=== PATIENT | female | born 1945 ===

== ENCOUNTER 2017-09-08 14:43 | Inpatient (IN) | payer MEDICARE, OTHER ==
--- NOTE | 2017-09-08 15:13 | ED PDOC ---
Arrival/HPI - General Time Seen by Provider: 09/08/17 15:04 Historian: Patient - History of Present Illness Narrative History of Present Illness (Text): 09/08/17 15:13 Patient is a 72 year old female, with past medical history of Alzheimer's, hypothyroidism, hypertension, hyperlipidemia, colon cancer and colostomy, presents to the Emergency department accompanied by son for evaluation of increased tremors prior to arrival. As per son,patient "normally has some shaking" but at 2 pm had sudden onset of "shaking severely" where she "couldn't walk" and "had to hold onto something to keep from falling". Son states the symptoms initially began 6 months ago and is scheduled to follow-up with neurologist Dr. Guerrero. However, symptoms worsened today as patient was unable to ambulate to the bathroom due to increased tremors. Patient denies headache, denies weakness. Denies chest pain or shortness of breath. No loss of consciousness. No incontinence of urine or stool. No trauma reported or noted. PMD: Dr. Zhou Neurologist: Dr. Guerrero 09/08/17 22:25 Time/Duration: Prior to Arrival Symptom Onset: Gradual Activities at Onset: Light Context: Home Past Medical History - Provider Review Nursing Documentation Reviewed: Yes - Tetanus Immunization Tetanus Immunization: Unknown - Cardiac Hx Pacemaker: No - Neurological Hx Paralysis: No - HEENT Hx HEENT Disorder: Yes (Use of glasses) - Endocrine/Metabolic Hx Hypothyroidism: Yes - Hematological/Oncological Hx Blood Transfusions: Yes (06/2013) Hx Blood Transfusion Reaction: No - Musculoskeletal/Rheumatological Hx Musculoskeletal Disorders: Yes (L HIP FX. 07/11) - Gastrointestinal Hx Colostomy: Yes - Psychiatric Hx Emotional Abuse: No Hx Physical Abuse: No Hx Substance Use: No - Surgical History Hx Hysterectomy: Yes - Anesthesia Hx Anesthesia Reactions: Yes (CONFUSION) Hx Malignant Hyperthermia: No - Suicidal Assessment Feels Threatened In Home Enviroment: No Family/Social History - Physician Review Nursing Documentation Reviewed: Yes Family/Social History: No Known Family HX Smoking Status: Current Some Days Smoker Hx Alcohol Use: No Hx Substance Use: No Hx Substance Use Treatment: No Allergies/Home Meds Allergies/Adverse Reactions: Allergies No Known Allergies Allergy (Verified 09/08/17 14:57) Home Medications: Home Meds Medication Instructions Recorded Confirmed Atorvastatin [Lipitor] 20 mg PO DAILY 07/01/15 09/08/17 Cyanocobalamin [Vitamin B12 1000 1,000 mcg IM Q14D 07/01/15 09/08/17 mcg/ml Inj] Donepezil HCl [Aricept] 10 mg PO QPM 07/01/15 09/08/17 Ergocalciferol (Vitamin D2) 50,000 iu PO WED 07/01/15 07/03/15 [Vitamin D] Levothyroxine [Synthroid] 88 mcg PO QAM 07/01/15 07/03/15 Losartan Potassium 50 mg PO DAILY 07/01/15 09/08/17 Meclizine [Antivert] 25 mg PO TID PRN 07/01/15 09/08/17 Solifenacin Succinate [Vesicare] 5 mg PO DAILY 07/01/15 09/08/17 Diclofenac Sodium [Diclo Gel] 1 each TP 09/08/17 Review of Systems - Review of Systems Constitutional: Fatigue. absent: Fevers Eyes: absent: Vision Changes ENT: absent: Hearing Changes Respiratory: absent: SOB, Cough Cardiovascular: absent: Chest Pain, Palpitations, Edema Gastrointestinal: absent: Abdominal Pain Genitourinary Female: absent: Dysuria, Frequency Musculoskeletal: absent: Back Pain Skin: absent: Rash Neurological: Gait Changes, Disequilibrium, Other (tremors). absent: Headache, Focal Weakness Endocrine: absent: Polyuria Hemo/Lymphatic: absent: Easy Bleeding Psychiatric: absent: Depression Physical Exam - Physical Exam Narrative Physical Exam (Text): 09/08/17 15:13 Head: Atraumatic. Normocephalic. Eyes: PERRL. EOMI. Conjunctivae are not pale. ENT: Mucous membranes are moist and intact. Oropharynx is clear and symmetric. No facial droop. No tongue deviation. Neck: Supple. Full ROM. No JVD. No lymphadenopathy. Cardiovascular: Regular rate. Regular rhythm. No murmurs, rubs, or gallops. Distal pulses are 2+ and symmetric. Pulmonary/Chest: No evidence of respiratory distress. Clear to auscultation bilaterally. No wheezing, rales or rhonchi. Abdominal: Soft and non-distended. There is no tenderness. No rebound, guarding, or rigidity. No organomegaly. Good bowel sounds. Colostomy. Back: No CVA tenderness. Extremities: No edema. No cyanosis. No clubbing. Full range of motion in all extremities. No calf tenderness. Skin: Skin is warm and dry. No petechiae. No purpura. Neurological: Alert, awake. Answers simple questions appropriatedly and follows commands. No pronator drift. There is no focal weakness. There is tremor, fine, noted in upper extremities with movement. Psychiatric: Good eye contact. Vital Signs Reviewed: Yes Vital Signs Temp Pulse Resp BP Pulse Ox 09/08/17 19:04 71 19 159/86 H 98 09/08/17 15:02 98.4 F 74 17 170/93 H 98 Temperature: Afebrile Blood Pressure: Hypertensive Pulse: Regular Respiratory Rate: Normal Appearance: Positive for: Well-Appearing, Non-Toxic, Comfortable Pain Distress: Mild Medical Decision Making ED Course and Treatment: 09/08/17 15:24 Impression: 72 year old female presents to the Emergency department for evaluation of tremors, episodes of almost following and increase in severity acutely as described by son who is at bedside and witnessed.. Plan: -- CT of Head -- Labs -- Reassess and disposition Prior Visits: Notes and results from previous visits were reviewed. Progress Notes: Patient noted to have tremor with exertion on exam, but no slurred speech, no focal weakness otherwise noted. She is afebrile. No loc. No seizure activity noted. 09/08/17 16:59 CT of head reviewed by radiologist, shows: Severe chronic microvascular changes are seen in the periventricular white matter. There is moderate atrophy. 09/08/17 18:00 Chest X-ray reviewed by radiologist, shows no active disease. 09/08/17 22:30 Patient's son states that she has not formally been diagnosed with Parkinson's but reports concern of acute episode of incrased shakiness. Currently with observation in ED she is afebrile, conversive, and comfortable. Son states PMD is Dr. Aimee Zhou. Will admit to hospitalist service, who covers. Case accepted by Dr. Christina Hensley. Son updated with treatment plan. - Lab Interpretations Lab Results: 09/08/17 17:00 09/08/17 17:00 Lab Results 09/08/17 17:05: pO2 45, VBG pH 7.36, VBG pCO2 49.0, VBG HCO3 27.7, VBG Total CO2 29.2 H, VBG O2 Sat (Calc) 84.3 H, VBG Base Excess 1.5, VBG Potassium 4.4, Glucose 113 H, Lactate 1.3, FiO2 21.0, Sodium 138.0, Chloride 105.0, Venous Blood Potassium 4.4 09/08/17 17:00: Urine Color Straw, Urine Appearance Clear, Urine pH 7.0, Ur Specific [place] <= 1.005, Urine Protein Negative, Urine Glucose (UA) Negative, Urine Ketones Negative, Urine Blood Negative, Urine Nitrate Negative, Urine Bilirubin Negative, Urine Urobilinogen 0.2, Ur Leukocyte Esterase Moderate H, Urine RBC Negative, Urine WBC 1 - 3, Ur Epithelial Cells 0 - 2, Urine Bacteria Neg 09/08/17 17:00: PT 11.5, INR 1.01, APTT 30.1 09/08/17 17:00: Sodium 142, Potassium 4.3, Chloride 103, Carbon Dioxide 27, Anion Gap 16, BUN 9, Creatinine 0.8, Est GFR ( Amer) > 60, Est GFR (Non- Af Amer) > 60, Random Glucose 110, Calcium 10.0, Total Bilirubin 0.7, AST 27, ALT 34, Alkaline Phosphatase 77, Lactate Dehydrogenase 511, Total Creatine Kinase 60, Troponin I < 0.01, Total Protein 8.3, Albumin 4.7, Globulin 3.6, Albumin/Globulin Ratio 1.3 09/08/17 17:00: WBC 6.3, RBC 4.70, Hgb 14.4, Hct 41.2, MCV 87.7, MCH 30.6, MCHC 35.0, RDW 15.1 H, Plt Count 217, MPV 11.8 H, Gran % 79.8 H, Lymph % (Auto) 13.0 L, [place] % (Auto) 5.8, Eos % (Auto) 0.9 L, Baso % (Auto) 0.5, Gran # 5.05, Lymph # (Auto) 0.8 L, [place] # (Auto) 0.4, Eos # (Auto) 0.1, Baso # (Auto) 0.03 - RAD Interpretation Radiology Orders: 09/08/17 15:22 HEAD W/O CONTRAST [CT] Stat 09/08/17 15:32 CHEST PORTABLE [RAD] Stat Vehicle Inspector: Radiologist - EKG Interpretation EKG Interpretation (Text): EKG at 1707 normal sinus rhythm rate of [address] elevations Interpreted by ED Physician: Yes Type: 12 lead EKG - Medication Orders Current Medication Orders: Acetaminophen (Tylenol 325mg Tab) 650 mg PO Q6H PRN PRN Reason: Pain, moderate (4-7) Atorvastatin Calcium (Lipitor) 20 mg PO DAILY SPENCER Donepezil HCl (Aricept) 10 mg PO QPM SPENCER Enoxaparin Sodium (Lovenox) 40 mg SC DAILY SPENCER PRN Reason: Protocol Ergocalciferol (Drisdol 50,000 Intl Units Cap) cap PO WED SPENCER Levothyroxine Sodium (Synthroid) 88 mcg PO QAM SPENCER Losartan Potassium (Cozaar) 50 mg PO DAILY SPENCER Meclizine HCl (Antivert) 25 mg PO TID PRN PRN Reason: Dizziness Non-Formulary Medication (Solifenacin Succinate [Vesicare]) 5 mg PO DAILY SPENCER Pantoprazole Sodium (Protonix Ec Tab) 40 mg PO 0600 SPENCER Discontinued Medications Aspirin (Aspirin Chewable) 81 mg PO STAT STA Stop: 09/08/17 20:00 Last Admin: 09/08/17 20:54 Dose: 81 mg - Aurelianoibe Statement The provider has reviewed the documentation as recorded by the Dmitry Badillo. All medical record entries made by the Dmitry were at my direction and personally dictated by me. I have reviewed the chart and agree that the record accurately reflects my personal performance of the history, physical exam, medical decision making, and the department course for this patient. I have also personally directed, reviewed, and agree with the discharge instructions and disposition. Disposition/Present on Arrival - Present on Arrival Any Indicators Present on Arrival: No History of DVT/PE: No History of Uncontrolled Diabetes: No Urinary Catheter: No History Surgical Site Infection Following: None - Disposition Have Diagnosis and Disposition been Completed?: Yes Diagnosis: Has a tremor, Near syncope Disposition: HOSPITALIZED Disposition Time: 18:00 Patient Plan: Admission, Telemetry Condition: FAIR
--- NOTE | 2017-09-08 16:34 | CT ---
Date of service: 09/08/2017 PROCEDURE: CT HEAD WITHOUT CONTRAST. HISTORY: increased tremors COMPARISON: CT 07/06/2017 TECHNIQUE: Axial computed tomography images were obtained through the head/brain without intravenous contrast. Radiation dose: Total exam DLP = 858 mGy-cm. This CT exam was performed using one or more of the following dose reduction techniques: Automated exposure control, adjustment of the mA and/or kV according to patient size, and/or use of iterative reconstruction technique. FINDINGS: HEMORRHAGE: No intracranial hemorrhage. BRAIN: No mass effect or edema. Severe chronic microvascular changes are seen in the periventricular white matter. There is moderate atrophy VENTRICLES: Unremarkable. No hydrocephalus. CALVARIUM: Unremarkable. PARANASAL SINUSES: Unremarkable as visualized. No significant inflammatory changes. MASTOID AIR CELLS: Unremarkable as visualized. No inflammatory changes. OTHER FINDINGS: None. IMPRESSION: Severe chronic microvascular changes are seen in the periventricular white matter. There is moderate atrophy
--- NOTE | 2017-09-08 16:36 | RAD ---
Date of service: 09/08/2017 HISTORY: weakness COMPARISON: 04/06/2015 FINDINGS: LUNGS: No active pulmonary disease. PLEURA: No significant pleural effusion identified, no pneumothorax apparent. CARDIOVASCULAR: Normal. OSSEOUS STRUCTURES: No significant abnormalities. VISUALIZED UPPER ABDOMEN: Normal. OTHER FINDINGS: None. IMPRESSION: No active disease.
[2017-09-08 17:10] LABS: VENOUS BLOOD GAS BASE EXCESS 1.5 mmol/L (0.0-2.0); VENOUS BLOOD GAS PO2 45 mm/Hg (30-55); VENOUS BLOOD PH 7.36 (7.32-7.43)
[2017-09-08 17:17] LABS: BASO # 0.03 K/mm3 (0.0-2.0); BASO % 0.5 % (0.0-3.0); EOS # 0.1 (0.0-0.7); EOS % 0.9 % (1.5-5.0); GRAN # 5.05 (1.4-6.5); GRAN % 79.8 % (50.0-68.0); HEMOGLOBIN 14.4 g/dL (12.0-16.0); LYMPH # 0.8 (1.2-3.4); MEAN CELL VOLUME 87.7 fl (80.0-105.0); MEAN CORPUSCULAR HEMOGLOBIN 30.6 pg (25.0-35.0); MEAN PLATELET VOLUME 11.8 fl (7.0-11.0); MONO # 0.4 (0.1-0.6); MONO % 5.8 % (1.0-6.0); RBC 4.7 10^6/uL (3.5-6.1); RED CELL DISTRIBUTION WIDTH 15.1 % (11.5-14.5); WHITE BLOOD COUNT 6.3 10^3/ul (4.5-11.0)
[2017-09-08 17:21] LABS: URINE BILIRUBIN NEGATIVE (NEGATIVE); URINE BLOOD NEGATIVE (NEGATIVE); URINE GLUCOSE (UA) NEGATIVE (NEGATIVE); URINE LEUKOCYTE ESTERASE MODERATE Leu/uL (NEGATIVE); URINE PROTEIN NEGATIVE mg/dL (<30 mg/dL); URINE UROBILINOGEN 0.2 E.U./dL (<1 E.U./dL)
[2017-09-08 17:22] LABS: URINE APPEARANCE CLEAR (CLEAR); URINE COLOR STRAW (YELLOW)
[2017-09-08 17:27] LABS: INR 1.01 (0.93-1.08); PARTIAL THROMBOPLASTIN TIME 30.1 Seconds (25.1-36.5); PROTHROMBIN TIME 11.5 SECONDS (9.4-12.5)
[2017-09-08 17:29] LABS: ALB/GLOB RATIO 1.3 (1.1-1.8); ALBUMIN 4.7 g/dL (3.0-4.8); ALT/SGPT 34 U/L (7-56); AST/SGOT 27 U/L (14-36); BLOOD UREA NITROGEN 9 mg/dL (7-21); GFR AFRICAN-AMERICAN > 60; GFR NON-AFRICAN AMERICAN > 60
[2017-09-08 17:31] LABS: URINE BACTERIA NEG (NEG); URINE EPITHELIAL CELLS 0 - 2 /hpf (0-5); URINE RBC NEGATIVE /hpf (0-2)
[2017-09-08 17:41] LABS: TROPONIN I < 0.01 ng/mL
--- NOTE | 2017-09-08 19:29 | CARD ---
APPROVED REPORT Date of service: 09/08/2017 EKG Measurement Heart [id number] <Conclusion> Normal sinus rhythm Normal ECG
--- NOTE | 2017-09-08 21:30 | CP.PCM.HP ---
<Nishant Marino - Last Filed: 09/08/17 22:43> History of Present Illness - History of Present Illness History of Present Illness: Nishant Marino DO PGY-1 Hospitalist Admission History and Physical for Dr. Christina Hensley CC: worsening tremor, weakness HPI: Ms. Gottlieb is a 72 year old female with PMH of Alzheimer's disease, hypothyroidism, hypertension, hyperlipidemia, colon cancer (s/p colostomy at least five years ago) who presented to ED with her son for concerns of worsening tremor and an episode of weakness. According to her son, she had a worsening tremor around 2pm this afternoon and then she had to suddenly grab on to a bar to keep her balance while ambulating to the bathroom. Patient is a poor historian and is unsure why she is in the hospital. Most of the history was obtained from discussion with ED physician who spoke to her son earlier. Patient does complain that her tremors are worse and that "her mind isn't here. " She admits that the tremors get worse when she is trying to grab or do something. She admits to numbness in both hands and worsening weakness in her right hand. She admits to weakness in her LLE ever since her knee surgery. Otherwise, she denies speech changes, facial drooping, changes in sensation. She also denies fever, chills, chest pain, SOB, nausea, vomiting, abdominal pain. PMD: Dr. Zhou Primary Neurologist: Dr. Americo Guerrero PMH: hypothyroidism, HLD, HTN, colon CA, Alzheimer's disease PSH: patient states she had a total colectomy about 3 years ago, she had a colostomy as late as 5 years ago according to prior ED notes. Has also had surgery on her L knee Allergies: NKDA Home medications: vesicare, meclizine, aricept, losartan, cyanobalamin, synthroid, diclofenac, vitamin D Fam Hx: Mother had HTN, DM2, father had TB, one of her uncle's had a CVA. Of note, patient denies any family history of similar tremors. Soc Hx: Patient reports she smoked about 3 cigarettes a day for over 30 years. Denies alcohol or drug use. Currently lives with her son Present on Admission - Present on Admission Any Indicators Present on Admission: No History of DVT/PE: No History of Uncontrolled Diabetes: No Urinary Catheter: No Decubitus Ulcer Present: No Review of Systems - Review of Systems Review of Systems: A 12 point ROS was reviewed with patient and negative except as stated in HPI Past Patient History - Infectious Disease Hx of Infectious Diseases: None - Tetanus Immunizations Tetanus Immunization: Unknown - Past Social History Smoking Status: Current Some Days Smoker - CARDIAC Hx Pacemaker: No - NEUROLOGICAL Hx Paralysis: No - HEENT Hx HEENT Problems: Yes (Use of glasses) - ENDOCRINE/METABOLIC Hx Hypothyroidism: Yes - HEMATOLOGICAL/ONCOLOGICAL Hx Blood Transfusions: Yes (06/2013) Hx Blood Transfusion Reaction: No - MUSCULOSKELETAL/RHEUMATOLOGICAL Hx Musculoskeletal Disorders: Yes (L HIP FX. 07/11) - GASTROINTESTINAL Hx Colostomy: Yes - PSYCHIATRIC Hx Emotional Abuse: No Hx Physical Abuse: No Hx Substance Use: No - SURGICAL HISTORY Hx Hysterectomy: Yes - ANESTHESIA Hx Anesthesia Reactions: Yes (CONFUSION) Hx Malignant Hyperthermia: No Meds Home Medications: Home Medication List Medication Instructions Recorded Confirmed Type Levothyroxine [Synthroid] 112 mcg PO DAILY #30 tab 09/12/17 Rx Propranolol [Inderal] 40 mg PO DAILY #14 tab 09/12/17 Rx Allergies/Adverse Reactions: Allergies Allergy/AdvReac Type Severity Reaction Status Date / Time No Known Allergies Allergy Verified 09/08/17 14:57 Physical Exam - Constitutional Additional comments: In general, Ms. Gottlieb is alert to person and place, not situation but is pleasant - Head Exam Head Exam: ATRAUMATIC, NORMAL INSPECTION, NORMOCEPHALIC - Eye Exam Eye Exam: Normal appearance, PERRL - ENT Exam ENT Exam: Mucous Membranes Moist - Neck Exam Neck exam: Positive for: Normal Inspection. Negative for: Tenderness, Thyromegaly - Respiratory Exam Respiratory Exam: Clear to Auscultation Bilateral, NORMAL BREATHING PATTERN. absent: Accessory Muscle Use, Rales, Rhonchi, Wheezes, Respiratory Distress - Cardiovascular Exam Cardiovascular Exam: RRR, +S1, +S2. absent: Diastolic murmur, Gallop, JVD, Rubs , Systolic Murmur - GI/Abdominal Exam GI & Abdominal Exam: Normal Bowel Sounds, Soft. absent: Guarding, Organomegaly , Rebound Additional comments: L sided colostomy appears clean, intact, well maintained - Extremities Exam Extremities exam: Positive for: normal inspection. Negative for: calf tenderness, pedal edema - Neurological Exam Neurological exam: Alert, CN II-XII Intact Additional comments: Muscle strength 5/5 throughout in UE and 4/5 in left lower extremity. Finger to nose testing moderately impaired. No dysdiadochokinesia. Tremor noted in both of her hands and legs bilaterally which appears to be intention tremor. - Psychiatric Exam Psychiatric exam: Normal Affect, Normal Mood - Skin Skin Exam: Dry, Intact, Normal Color, Warm Results - Vital Signs Recent Vital Signs: Last Vital Signs Temp 98.4 F 09/08/17 15:02 Pulse 71 09/08/17 19:04 Resp 19 09/08/17 19:04 BP 159/86 H 09/08/17 19:04 Pulse Ox 98 09/08/17 19:04 - Labs Result Diagrams: 09/08/17 17:00 09/08/17 17:00 Assessment & Plan - Assessment and Plan (Free Text) Assessment: Ms. Gottlieb is a 72 year old female with PMH of Alzheimer's disease, hypothyroidism, hypertension, hyperlipidemia, colon cancer (s/p colostomy at least five years ago) admitted for worsening tremor and an episode of weakness. 1. Worsening tremor -May be secondary to benign familial tremor vs. CVA/TIA -Less likely secondary to Parkinson's disease as it appears to be an intention tremor and patient does not have rigidity, mask-like facies -Less likely secondary to metastatic disease from prior colon CA -CT head negative for acute changes, remarkable for atrophy and chronic microvascular changes -Assessing for CVA risk factors, including lipid panel, A1C, TSH -Will be unable to obtain MRI due to hardware from prior knee surgeries -Dr. Americo Guerrero consulted and notified 2. Episode of weakness -Likely secondary to worsening tremor vs. L knee OA vs. CVA/TIA -Less likely due to pre-syncopal episode -Will still complete syncope w/u with Echo, carotid US, orthostatic VS 3. Hx of hypothyroidism -Checking TSH, T3, T4 -Patient currently on 88 mcg of synthroid 4. Hx of HTN -Well controlled on losartan 5. Hx of HLD -On lipitor 20 mg -Will check lipid panel in AM 6. Hx of Alzheimer's dementia -On Aricept 10 mg Case and plan were reviewed and discussed in detail with Dr. Christina Hensley attending. Nishant Marino DO Resident PGY-1 Pager: [phone] <Jane Hensley N - Last Filed: 09/13/17 05:50> Results - Vital Signs Recent Vital Signs: Last Vital Signs Temp 97.6 F 09/12/17 08:37 Pulse 72 09/12/17 10:44 Resp 18 09/12/17 08:37 BP 103/70 09/12/17 08:37 Pulse Ox 97 09/12/17 08:37 - Labs Result Diagrams: 09/12/17 06:00 09/12/17 06:00 Labs: Laboratory Results - last 24 hr 09/12/17 09/12/17 09/12/17 06:00 06:00 06:00 WBC 6.8 RBC 4.73 Hgb 14.4 Hct 41.5 MCV 87.7 MCH 30.4 MCHC 34.7 RDW 15.1 H Plt Count 216 MPV 12.1 H Gran % 69.2 H Lymph % (Auto) 16.9 L [place] % (Auto) 9.4 H Eos % (Auto) 3.8 Baso % (Auto) 0.7 Gran # 4.69 Lymph # (Auto) 1.2 [place] # (Auto) 0.6 Eos # (Auto) 0.3 Baso # (Auto) 0.05 Sodium 143 Potassium 4.8 Chloride 105 Carbon Dioxide 25 Anion Gap 17 BUN 16 Creatinine 0.9 Est GFR ( Amer) > 60 Est GFR (Non-Af Amer) > 60 Random Glucose 101 Hemoglobin A1c Calcium 10.1 Total Bilirubin 0.8 AST 26 ALT 19 Alkaline Phosphatase 70 Total Protein 8.1 Albumin 4.4 Globulin 3.7 Albumin/Globulin Ratio 1.2 Free T4 1.92 Thyroxine (T4) 10.0 TSH 3rd Generation 26.60 H 09/12/17 06:00 WBC RBC Hgb Hct MCV MCH MCHC RDW Plt Count MPV Gran % Lymph % (Auto) [place] % (Auto) Eos % (Auto) Baso % (Auto) Gran # Lymph # (Auto) [place] # (Auto) Eos # (Auto) Baso # (Auto) Sodium Potassium Chloride Carbon Dioxide Anion Gap BUN Creatinine Est GFR ( Amer) Est GFR (Non-Af Amer) Random Glucose Hemoglobin A1c 6.0 Calcium Total Bilirubin AST ALT Alkaline Phosphatase Total Protein Albumin Globulin Albumin/Globulin Ratio Free T4 Thyroxine (T4) TSH 3rd Generation
[2017-09-09 03:43] VITALS: BMI 26.9
[2017-09-09] MEDS: Pantoprazole 40 mg EC Tab PO SCH (06:00)
[2017-09-09 07:01] LABS: BASO # 0.04 K/mm3 (0.0-2.0); BASO % 0.5 % (0.0-3.0); EOS # 0.1 (0.0-0.7); EOS % 1.6 % (1.5-5.0); GRAN # 6.37 (1.4-6.5); GRAN % 79.5 % (50.0-68.0); HEMOGLOBIN 14.3 g/dL (12.0-16.0); MEAN CELL VOLUME 88.3 fl (80.0-105.0); MEAN CORPUSCULAR HEMOGLOBIN 30.3 pg (25.0-35.0); MEAN CORPUSCULAR HGB CONC 34.3 g/dl (31.0-37.0); MEAN PLATELET VOLUME 11.9 fl (7.0-11.0); MONO # 0.5 (0.1-0.6); MONO % 6.4 % (1.0-6.0); RBC 4.72 10^6/uL (3.5-6.1); RED CELL DISTRIBUTION WIDTH 15.2 % (11.5-14.5)
[2017-09-09 07:10] LABS: ALB/GLOB RATIO 1.3 (1.1-1.8); ALBUMIN 4.7 g/dL (3.0-4.8); ALT/SGPT 20 U/L (7-56); AST/SGOT 25 U/L (14-36); BLOOD UREA NITROGEN 9 mg/dL (7-21); CALCIUM 10.4 mg/dL (8.4-10.5); GFR AFRICAN-AMERICAN > 60; GFR NON-AFRICAN AMERICAN > 60; HDL CHOLESTEROL 70 mg/dL (29-60)
[2017-09-09 07:16] LABS: LDL CHOLESTEROL 88 mg/dL (0-129)
[2017-09-09 07:21] LABS: T4 9.1 ug/dL (5.5-11.0)
[2017-09-09 07:34] LABS: T3 1.14 ng/mL (0.97-1.69)
--- NOTE | 2017-09-09 09:50 | CARD ---
APPROVED REPORT Date of service: 09/09/2017 EXAM: Two-dimensional and M-mode echocardiogram with Doppler and color Doppler. INDICATION Syncope 2D DIMENSIONS Left Atrium (2D)3.4 (1.6-4.0cm)IVSd1.5 (0.7-1.1cm) LVDd3.3 (3.9-5.9cm)PWd1.3 (0.7-1.1cm) LVDs2.5 (2.5-4.0cm)FS (%) 26.2 % LVEF (%)52.7 (>50%) M-Mode DIMENSIONS Aortic Root2.70 (2.2-3.7cm)Aortic Cusp Exc.0.80 (1.5-2.0cm) Aortic Valve AoV Peak Awuodoll511.0cm/Gideon Peak GR.16mmHg Mitral Valve MV E Nvpjplin00.1cm/sMV A Upxusgnd000.0cm/sE/A ratio0.4 TDI E/Lateral E'0.0E/Medial E'0.0 Tricuspid Valve TR Peak [id number]/sRAP [id number] Peak Gr.14mmHg [id number] LEFT VENTRICLE The left ventricle is normal size. There is mild concentric left ventricular hypertrophy. The left ventricular function is normal. The left ventricular ejection fraction is within the normal range. There is normal LV segmental wall motion. Transmitral Doppler flow pattern is Grade I-abnormal relaxation pattern. RIGHT VENTRICLE The right ventricle is normal size. There is normal right ventricular wall thickness. The right ventricular systolic function is normal. ATRIA The left atrium size is normal. The right atrium size is normal. AORTIC VALVE The aortic valve is mildly sclerotic. No aortic regurgitation is present. MITRAL VALVE The mitral valve is not well visualized. There is no mitral valve regurgitation noted. There is no mitral valve stenosis. TRICUSPID VALVE The tricuspid valve is normal in structure. There is trace tricuspid regurgitation. GREAT VESSELS The aortic root is normal in size. PERICARDIAL EFFUSION There is a trace loculated anterior pericardial effusion. <Conclusion> The left ventricle is normal size. There is mild concentric left ventricular hypertrophy. The left ventricular function is normal. The left ventricular ejection fraction is within the normal range. There is normal LV segmental wall motion. Transmitral Doppler flow pattern is Grade I-abnormal relaxation pattern.
[2017-09-09] MEDS ORDERED: Enoxaparin 40 mg Syringe SC SCH (10:00)
[2017-09-09] MEDS: Levothyroxine 88 MCG TAB PO SCH (10:05)
[2017-09-09] MEDS: SOLIFENACIN SUCCINATE 5 MG PO SCH (10:06)
[2017-09-09] MEDS: Enoxaparin 40 mg Syringe SC SCH (13:39)
--- NOTE | 2017-09-09 18:29 | CP.PCM.PN ---
<Elieser Martínez - Last Filed: 09/09/17 22:28> Subjective - Date & Time of Evaluation Date of Evaluation: 09/09/17 Time of Evaluation: 09:30 - Subjective Subjective: Elieser Martínez DO PGY-1, [employer] Medicine Progress Note Pt seen and examined at bedside. Denies any acute complaints, No acute events reported overnight. Pt resting comfortably in bed, able to recall her name and why she is here, but unable to state time. States she is in no pain. States she has tremors at baseline. Objective - Vital Signs/Intake and Output Vital Signs (last 24 hours): Temp Pulse Resp BP Pulse Ox 98 F 74 16 144/84 98 09/09/17 17:58 09/09/17 17:58 09/09/17 17:58 09/09/17 17:58 09/08/17 23:21 Intake and Output: 09/09/17 09/09/17 06:59 18:59 Intake Total 0 Output Total 300 Balance -300 - Medications Medications: Current Medications Acetaminophen (Tylenol 325mg Tab) 650 mg PO Q6H PRN PRN Reason: Pain, moderate (4-7) Atorvastatin Calcium (Lipitor) 20 mg PO DAILY [facility] Donepezil HCl (Aricept) 10 mg PO QPM [facility] Last Admin: 09/09/17 17:21 Dose: 10 mg Enoxaparin Sodium (Lovenox) 40 mg SC DAILY [facility] PRN Reason: Protocol Last Admin: 09/09/17 13:39 Dose: 40 mg Ergocalciferol (Drisdol 50,000 Intl Units Cap) 1 cap PO WED [facility] Levothyroxine Sodium (Synthroid) 88 mcg PO QAM [facility] Last Admin: 09/09/17 10:05 Dose: 88 mcg Losartan Potassium (Cozaar) 50 mg PO DAILY [facility] Last Admin: 09/09/17 10:05 Dose: 50 mg Meclizine HCl (Antivert) 25 mg PO TID PRN PRN Reason: Dizziness Non-Formulary Medication (Solifenacin Succinate [Vesicare]) 5 mg PO DAILY [facility] Last Admin: 09/09/17 10:06 Dose: Not Given Pantoprazole Sodium (Protonix Ec Tab) 40 mg PO 0600 [facility] Last Admin: 09/09/17 06:00 Dose: 40 mg Propranolol HCl (Inderal) 40 mg PO DAILY [facility] - Labs Labs: 09/09/17 06:30 09/09/17 06:30 PT 11.5 SECONDS (9.4-12.5) 09/08/17 17:00 INR 1.01 (0.93-1.08) 09/08/17 17:00 APTT 30.1 Seconds (25.1-36.5) 09/08/17 17:00 - Constitutional Appears: Well, Non-toxic, No Acute Distress - Eye Exam Eye Exam: EOMI, Normal appearance, PERRL - ENT Exam ENT Exam: Mucous Membranes Moist, Normal Oropharynx - Neck Exam Neck Exam: Full ROM, Normal Inspection - Respiratory Exam Respiratory Exam: Clear to Ausculation Bilateral, NORMAL BREATHING PATTERN - Cardiovascular Exam Cardiovascular Exam: REGULAR RHYTHM, +S1, +S2 - GI/Abdominal Exam GI & Abdominal Exam: Soft, Normal Bowel Sounds - Extremities Exam Additional comments: Decreased ROM of L leg, pt states it has been like that for a long time after her knee surgery - Neurological Exam Neurological Exam: Alert, Awake Additional comments: Oriented x2 - Psychiatric Exam Psychiatric exam: Normal Affect, Normal Mood - Skin Skin Exam: Dry, Intact, Normal Color, Warm Assessment and Plan - Assessment and Plan (Free Text) Assessment: 72 y o female PMhx of Alzheimer's disease, hypothyroidism, hypertension, hyperlipidemia, colon cancer (s/p colostomy at least five years ago) presented with worsening tremor and episode of weakness at home. R/o benign familial tremor, CVA/TIA, Parkinson's disease, as possible etiologies. Plan: Worsening tremor CT head on admission neg for acute changes, remarkable for atrophy and chronic microvascular changes Not likely due to CVA/TIA due to neg head CT and neg new onset focal deficits Will be unable to obtain MRI due to hardware from prior knee surgeries Neuro exam otherwise wnl, pt has tremor at baseline unchanged with activity Neuro consulted (Dr. Guerrero), recs appreciated Weakness Likely secondary to worsening tremor vs. CVA/TIA Less likely due to pre-syncopal episode Carotid doppler ordered, f/u results F/u PT eval, pt walks at home with walker as per hx from son at bedside Hx hypothyroidism TSH 42 Pt on home dose of synthroid 88 mcg, last titrated 2 mos ago as per pt's son F/u repeat TSH as outpatient in 6 weeks Hx HTN C/w losartan Hx HLD C/w lipitor 20 mg Lipid panel within range Hx Alzheimer's disease C/w Aricept 10 mg Pt seen, examined with, and plan d/w Dr. Petty, attending. Elieser Martínez DO PGY-1, [employer] Pager #[phone] <Lori Petty - Last Filed: 09/10/17 14:39> Objective - Vital Signs/Intake and Output Vital Signs (last 24 hours): Temp Pulse Resp BP Pulse Ox 98.1 F 76 18 177/99 H 98 09/10/17 11:52 09/10/17 11:52 09/10/17 11:52 09/10/17 11:52 09/10/17 06:00 Intake and Output: 09/10/17 09/10/17 06:59 18:59 Intake Total 280 240 Output Total 400 200 Balance -120 40 - Medications Medications: Current Medications Acetaminophen (Tylenol 325mg Tab) 650 mg PO Q6H PRN PRN Reason: Pain, moderate (4-7) Atorvastatin Calcium (Lipitor) 20 mg PO DAILY [facility] Last Admin: 09/10/17 10:11 Dose: 20 mg Docusate Sodium (Colace) 100 mg PO BID [facility] Last Admin: 09/10/17 10:11 Dose: 100 mg Donepezil HCl (Aricept) 10 mg PO QPM [facility] Last Admin: 09/09/17 17:21 Dose: 10 mg Enoxaparin Sodium (Lovenox) 40 mg SC DAILY [facility] PRN Reason: Protocol Last Admin: 09/10/17 10:11 Dose: 40 mg Ergocalciferol (Drisdol 50,000 Intl Units Cap) 1 cap PO WED [facility] Levothyroxine Sodium (Synthroid) 88 mcg PO 0600 [facility] Losartan Potassium (Cozaar) 50 mg PO DAILY [facility] Last Admin: 09/10/17 10:11 Dose: 50 mg Meclizine HCl (Antivert) 25 mg PO TID PRN PRN Reason: Dizziness Non-Formulary Medication (Solifenacin Succinate [Vesicare]) 5 mg PO DAILY [facility] Last Admin: 09/10/17 10:12 Dose: Not Given Pantoprazole Sodium (Protonix Ec Tab) 40 mg PO 0600 [facility] Last Admin: 09/10/17 05:36 Dose: 40 mg Propranolol HCl (Inderal) 40 mg PO DAILY [facility] Last Admin: 09/10/17 10:11 Dose: 40 mg - Labs Labs: 09/10/17 06:20 09/10/17 06:20 PT 11.5 SECONDS (9.4-12.5) 09/08/17 17:00 INR 1.01 (0.93-1.08) 09/08/17 17:00 APTT 30.1 Seconds (25.1-36.5) 09/08/17 17:00 Attending/Attestation - Attestation I have personally seen and examined this patient.: Yes I have fully participated in the care of the patient.: Yes I have reviewed all pertinent clinical information, including history, physical exam and plan: Yes Notes (Text): 09/10/17 14:35 Medical record note made by the resident after discussion with my direction and input after the patient was personally seen and examined by me. I have reviewed the chart and agree that the record accurately reflects by personal performance of the history, physical exam, data review, and medical decision-making, in the course for the patient. I have also personally directed the plan of care. 72 yrsold female with PMh of Alzheimer's disease, hypothyroidism, hypertension , hyperlipidemia, colon cancer (s/p colostomy at least five years ago) presented with worsening tremor and episode of weakness at home. Patient does not has any new weakness.Tremors are most likely essential, patient has been evaluated by Neurology and has been started on Propanolol.We will also get Physical therapy evaluation.Case was discussed with Neurology. TSH is elevated, we will get more information about any recent adjustment of dose , will increase dose to 112 mcg po daily, if no recent change in thyroid medication. Management plan was discussed in detail with patient son. Education was provided.
--- NOTE | 2017-09-09 18:31 | CON ---
DATE: 09/09/2017 NEUROLOGY CONSULTATION CHIEF COMPLAINT: Tremors. HISTORY OF PRESENT ILLNESS: A 72-year-old woman with history of cognitive impairment; hypothyroidism; hypertension; hyperlipidemia; colon cancer, status post colostomy five years ago; who presented with worsening tremors of the both hands and generalized weakness. Her stress increases the tremors. She is a poor historian, but on my examination, she does have mild tremors, but not as that severe. She is mildly deconditioned, otherwise no acute events overnight. PAST MEDICAL HISTORY: Hypothyroidism, hypertension, hyperlipidemia, cognitive impairment, history of colon cancer, status post colostomy and colectomy. FAMILY HISTORY: Noncontributory. REVIEW OF SYSTEMS: A 14-point review of systems negative except as per the HPI. MEDICATIONS: Reviewed by nurse per reconciliation sheet. SOCIAL HISTORY: No illicit drug use, smoking, or EtOH abuse at this time. LABORATORY DATA: Sodium is 144, potassium 4.3, chloride 102, carbon dioxide 29. BUN of 9, creatine 0.9. Random glucose of 103, A1c of 5.9. TSH is elevated at 42.4. PHYSICAL EXAMINATION: VITAL SIGNS: Temperature 98.7, pulse rate 72, blood pressure 150/85, respiratory rate 19, and oxygen saturation 98% by room air. GENERAL: The patient is sitting up in bed, in no acute distress. HEENT: Head is atraumatic, normocephalic. PERRLA. Extraocular muscles intact. NECK: Supple. No JVD, no adenopathy noted. LUNGS: Clear to auscultation. No adventitious sounds. HEART: S1 and S2, normal rate and rhythm. No murmurs, rubs, or gallops. ABDOMEN: Soft, nontender, and nondistended. Bowel sounds present. EXTREMITIES: No clubbing, no cyanosis. Peripheral pulses 2+ felt bilaterally. NEUROLOGIC: The patient is alert, oriented to person and place, not much to month or year. Recall after 5 minutes is 0/3. Poor attention span and slow thought process. Cranial nerves II through XII intact. Motor exam: Moves all extremities equally. she has mild tremor upon action, but no resting tremors. Slight increased tone throughout. Sensory exam: Light touch, pinprick, proprioception, and vibration intact. DTRs are 2+ throughout, 1 at both knees and ankles. Coordination: [id number] intact. No dysmetria noted. Gait is deferred for now. ASSESSMENT AND PLAN: This is a 72-year-old woman with history of [id number] cognitive impairment, hypothyroidism, hypertension, hyperlipidemia, colon cancer, status post colostomy five years ago, who presented with worsening tremors and generalized weakness. Generalized weakness could be secondary to underlying hypertensive urgency and her tremors are more of essential tremor type. We will recommend; 1. Propranolol 40 mg p.o. daily anxious and elevated TSH. She has elevated T3 which is elevated so. We will continue propranolol 40 mg p.o. daily for her tremors. 2. Follow up as an outpatient in our office for further tremor management. 3. Attention and concentration exercises for her cognitive impairment. 4. PT/OT assessment, adequate hydration, and keep blood pressure between 130s to 140 systolic and diastolic 70s to 80s. Thank you for this consult. Eulalio Guerrero MD
--- NOTE | 2017-09-09 19:33 | US ---
PROCEDURE: Bilateral carotid artery duplex ultrasound HISTORY: Carotid stenosis syncope. PHYSICIAN(S): Alex Argueta MD. TECHNIQUE: Duplex sonography and color-flow Doppler were used to evaluate the carotid bifurcations and limited segments of the vertebral arteries bilaterally. FINDINGS: There is mild to moderate smooth heterogeneous plaque noted at the carotid bifurcations bilaterally. The peak systolic velocity in the proximal right internal carotid artery is 56 cm/sec. This corresponds to a 20 to 39% proximal right ICA stenosis. Normal systolic velocities are noted in the proximal right external carotid artery. There is antegrade flow in the right vertebral artery. The peak systolic velocity in the proximal left internal carotid artery is 45 cm/sec. This corresponds to a 20 to 39% proximal left ICA stenosis. Normal systolic velocities are noted in the proximal left external carotid artery. There is antegrade flow in the left vertebral artery. IMPRESSION: 1. Bilateral 20-39 percent proximal ICA stenoses. 2. Antegrade flow in both vertebral arteries.
[2017-09-10] MEDS: Pantoprazole 40 mg EC Tab PO SCH (05:36)
[2017-09-10] MEDS: Levothyroxine 88 MCG TAB PO SCH (05:38)
[2017-09-10 07:04] LABS: BASO # 0.03 K/mm3 (0.0-2.0); BASO % 0.5 % (0.0-3.0); EOS # 0.2 (0.0-0.7); EOS % 3.3 % (1.5-5.0); GRAN # 4.29 (1.4-6.5); GRAN % 71.7 % (50.0-68.0); HEMOGLOBIN 14.2 g/dL (12.0-16.0); LYMPH # 0.9 (1.2-3.4); LYMPH % 15.5 % (22.0-35.0); MEAN CELL VOLUME 88.1 fl (80.0-105.0); MEAN CORPUSCULAR HEMOGLOBIN 30.6 pg (25.0-35.0); MEAN CORPUSCULAR HGB CONC 34.7 g/dl (31.0-37.0); MEAN PLATELET VOLUME 11.7 fl (7.0-11.0); MONO # 0.5 (0.1-0.6); RBC 4.64 10^6/uL (3.5-6.1); RED CELL DISTRIBUTION WIDTH 15.4 % (11.5-14.5)
[2017-09-10 07:36] LABS: ALB/GLOB RATIO 1.3 (1.1-1.8); ALBUMIN 4.4 g/dL (3.0-4.8); ALT/SGPT 24 U/L (7-56); AST/SGOT 24 U/L (14-36); BLOOD UREA NITROGEN 11 mg/dL (7-21); CALCIUM 9.9 mg/dL (8.4-10.5); GFR AFRICAN-AMERICAN > 60; GFR NON-AFRICAN AMERICAN > 60
[2017-09-10] MEDS ORDERED: Propranolol 60 mg ER Cap PO SCH (10:00)
[2017-09-10] MEDS: Enoxaparin 40 mg Syringe SC SCH (10:11)
[2017-09-10] MEDS: SOLIFENACIN SUCCINATE 5 MG PO SCH (10:12)
--- NOTE | 2017-09-10 16:06 | CP.PCM.PN ---
<Mario Borja - Last Filed: 09/10/17 15:43> Subjective - Date & Time of Evaluation Date of Evaluation: 09/10/17 Time of Evaluation: 15:43 - Subjective Subjective: Mario Borja DO - PGY1 Internal Medicine [employer] - Medicine Progress Note Pt seen and examined this AM at bedside; appears to be at mental baseline. Voicing no complaints at time of evaluation. States she is still having tremors. She denies any CP, Palp, SOB, Abd Pain, [facility]ER, BV. Objective - Vital Signs/Intake and Output Vital Signs (last 24 hours): Temp Pulse Resp BP Pulse Ox 98.1 F 76 18 177/99 H 98 09/10/17 11:52 09/10/17 11:52 09/10/17 11:52 09/10/17 11:52 09/10/17 06:00 Intake and Output: 09/10/17 09/10/17 06:59 18:59 Intake Total 280 480 Output Total 400 400 Balance -120 80 - Medications Medications: Current Medications Acetaminophen (Tylenol 325mg Tab) 650 mg PO Q6H PRN PRN Reason: Pain, moderate (4-7) Atorvastatin Calcium (Lipitor) 20 mg PO DAILY [facility] Last Admin: 09/10/17 10:11 Dose: 20 mg Docusate Sodium (Colace) 100 mg PO BID [facility] Last Admin: 09/10/17 10:11 Dose: 100 mg Donepezil HCl (Aricept) 10 mg PO QPM [facility] Last Admin: 09/09/17 17:21 Dose: 10 mg Enoxaparin Sodium (Lovenox) 40 mg SC DAILY [facility] PRN Reason: Protocol Last Admin: 09/10/17 10:11 Dose: 40 mg Ergocalciferol (Drisdol 50,000 Intl Units Cap) 1 cap PO WED [facility] Levothyroxine Sodium (Synthroid) 88 mcg PO 0600 [facility] Losartan Potassium (Cozaar) 50 mg PO DAILY [facility] Last Admin: 09/10/17 10:11 Dose: 50 mg Meclizine HCl (Antivert) 25 mg PO TID PRN PRN Reason: Dizziness Non-Formulary Medication (Solifenacin Succinate [Vesicare]) 5 mg PO DAILY [facility] Last Admin: 09/10/17 10:12 Dose: Not Given Pantoprazole Sodium (Protonix Ec Tab) 40 mg PO 0600 [facility] Last Admin: 09/10/17 05:36 Dose: 40 mg Propranolol HCl (Inderal) 40 mg PO DAILY [facility] Last Admin: 09/10/17 10:11 Dose: 40 mg - Labs Labs: 09/10/17 06:20 09/10/17 06:20 PT 11.5 SECONDS (9.4-12.5) 09/08/17 17:00 INR 1.01 (0.93-1.08) 09/08/17 17:00 APTT 30.1 Seconds (25.1-36.5) 09/08/17 17:00 - Constitutional Appears: Well, Non-toxic, No Acute Distress - Head Exam Head Exam: ATRAUMATIC, NORMOCEPHALIC - Eye Exam Eye Exam: EOMI, PERRL, Scleral icterus - Respiratory Exam Respiratory Exam: Clear to Ausculation Bilateral, Wheezes, NORMAL BREATHING PATTERN. absent: Rhonchi - Cardiovascular Exam Cardiovascular Exam: REGULAR RHYTHM, RRR, +S1, +S2, Murmur - GI/Abdominal Exam GI & Abdominal Exam: Soft. absent: Tenderness Additional comments: Colostomy bag present - Extremities Exam Additional comments: Tremors in upper and lower extremities; fasiculations appreciated. - Neurological Exam Neurological Exam: Alert, Awake Additional comments: Resting tremors do not extinguish with targeted movement; no worse from day prior. Gross strength BL UE and LE intact 5/5 - Psychiatric Exam Psychiatric exam: Normal Affect, Normal Mood Assessment and Plan - Assessment and Plan (Free Text) Assessment: 72 y o female PMhx of Alzheimer's disease, hypothyroidism, hypertension, hyperlipidemia, colon cancer (s/p colostomy at least five years ago) presented with worsening tremor and episode of weakness at home. R/o benign familial tremor, CVA/TIA, Parkinson's disease, as possible etiologies. Plan: Worsening tremor CT head negative for acute pathology; only chronic microvascular changes Unable to perform MRI 2/2 hardware Tremor Neuro consulted (Dr. Guerrero), apprecite recs Started Propranolol 40 QD Weakness Likely secondary to worsening tremor vs. CVA/TIA Less likely due to pre-syncopal episode Carotid doppler - BL 20-39% stenosis of proximal ICA ; Anterograde flow in both vertebral arteries PT Eval: PT w/ [employer] services 2/2 difficulty walking Hx hypothyroidism TSH 42 Pt home dose 88mcg maintained since before January 2017 Increased dose from 88mcg to 112mcg F/u repeat TSH as outpatient in 6 weeks Hx HTN Cont Losartan 50 QD Started Propranolol 40 QD for tremors; monitor pressures If pressures continue to remain elevated; will increase dose/frequency of Losartan. Hx HLD Lipitor 20 Lipid panel within range Hx Alzheimer's disease At baseline C/w Aricept 10 mg GI/ DVT Prophylaxis: Protonix/ Lovenox Dispo: Once medically stable, patient will be discharged home w/ PT and [employer] services Pt. was seen, examined, and discussed at length w/ attending Dr. Jovanny Borja DO - PGY1 IM [employer] - Pager [phone] <Lori Petty - Last Filed: 09/12/17 17:26> Objective - Vital Signs/Intake and Output Vital Signs (last 24 hours): Temp Pulse Resp BP Pulse Ox 97.6 F 72 18 103/70 97 09/12/17 08:37 09/12/17 10:44 09/12/17 08:37 09/12/17 08:37 09/12/17 08:37 Intake and Output: 09/12/17 09/12/17 06:59 18:59 Output Total 300 Balance -300 - Medications Medications: Current Medications Acetaminophen (Tylenol 325mg Tab) 650 mg PO Q6H PRN PRN Reason: Pain, moderate (4-7) Atorvastatin Calcium (Lipitor) 20 mg PO DAILY [facility] Last Admin: 09/12/17 10:45 Dose: 20 mg Docusate Sodium (Colace) 100 mg PO BID [facility] Last Admin: 09/12/17 10:43 Dose: 100 mg Donepezil HCl (Aricept) 10 mg PO QPM [facility] Last Admin: 09/11/17 19:34 Dose: 10 mg Enoxaparin Sodium (Lovenox) 40 mg SC DAILY [facility] PRN Reason: Protocol Last Admin: 09/12/17 10:45 Dose: 40 mg Ergocalciferol (Drisdol 50,000 Intl Units Cap) 1 cap PO WED [facility] Levothyroxine Sodium (Synthroid) 112 mcg PO 0600 [facility] Last Admin: 09/12/17 05:55 Dose: 112 mcg Losartan Potassium (Cozaar) 50 mg PO DAILY [facility] Last Admin: 09/12/17 10:44 Dose: 50 mg Meclizine HCl (Antivert) 25 mg PO TID PRN PRN Reason: Dizziness Non-Formulary Medication (Solifenacin Succinate [Vesicare]) 5 mg PO DAILY [facility] Last Admin: 09/12/17 13:54 Dose: Not Given Nystatin (Nystop Topical Powder) 1 gm TOP BID [facility] Last Admin: 09/12/17 10:46 Dose: 1 gm Pantoprazole Sodium (Protonix Ec Tab) 40 mg PO 0600 [facility] Last Admin: 09/12/17 05:55 Dose: 40 mg Propranolol HCl (Inderal) 40 mg PO DAILY [facility] Last Admin: 09/12/17 10:44 Dose: 40 mg - Labs Labs: 09/12/17 06:00 09/12/17 06:00 PT 11.5 SECONDS (9.4-12.5) 09/08/17 17:00 INR 1.01 (0.93-1.08) 09/08/17 17:00 APTT 30.1 Seconds (25.1-36.5) 09/08/17 17:00 Attending/Attestation - Attestation I have personally seen and examined this patient.: Yes I have fully participated in the care of the patient.: Yes I have reviewed all pertinent clinical information, including history, physical exam and plan: Yes Notes (Text): 09/12/17 17:26 Medical record note made by the resident after discussion with my direction and input after the patient was personally seen and examined by me. I have reviewed the chart and agree that the record accurately reflects by personal performance of the history, physical exam, data review, and medical decision-making, in the course for the patient. I have also personally directed the plan of care.
[2017-09-11] MEDS: Pantoprazole 40 mg EC Tab PO SCH (05:03)
[2017-09-11] MEDS: Levothyroxine 112 MCG TAB PO SCH (05:03)
[2017-09-11] MEDS ORDERED: Levothyroxine 88 MCG TAB PO SCH (06:00)
[2017-09-11 07:30] LABS: BASO # 0.05 K/mm3 (0.0-2.0); BASO % 0.7 % (0.0-3.0); EOS # 0.3 (0.0-0.7); EOS % 3.8 % (1.5-5.0); GRAN # 4.77 (1.4-6.5); GRAN % 67.2 % (50.0-68.0); HEMOGLOBIN 14.1 g/dL (12.0-16.0); LYMPH # 1.4 (1.2-3.4); LYMPH % 19.4 % (22.0-35.0); MEAN CELL VOLUME 87.1 fl (80.0-105.0); MEAN CORPUSCULAR HEMOGLOBIN 30.3 pg (25.0-35.0); MEAN CORPUSCULAR HGB CONC 34.7 g/dl (31.0-37.0); MEAN PLATELET VOLUME 12.1 fl (7.0-11.0); MONO # 0.6 (0.1-0.6); MONO % 8.9 % (1.0-6.0); RBC 4.66 10^6/uL (3.5-6.1); RED CELL DISTRIBUTION WIDTH 15.3 % (11.5-14.5); WHITE BLOOD COUNT 7.1 10^3/ul (4.5-11.0)
[2017-09-11 08:16] VITALS: RESP 18
[2017-09-11 08:21] LABS: ALB/GLOB RATIO 1.3 (1.1-1.8); ALBUMIN 4.5 g/dL (3.0-4.8); ALT/SGPT 27 U/L (7-56); AST/SGOT 26 U/L (14-36); BLOOD UREA NITROGEN 15 mg/dL (7-21); CALCIUM 10.1 mg/dL (8.4-10.5); GFR AFRICAN-AMERICAN > 60; GFR NON-AFRICAN AMERICAN > 60
[2017-09-11] MEDS: Enoxaparin 40 mg Syringe SC SCH (10:02)
[2017-09-11] MEDS: SOLIFENACIN SUCCINATE 5 MG PO SCH (10:03)
[2017-09-11] MEDS: Nystatin 100,000 Units/gm Topical Pow(15 gm) TOP SCH ×2 (11:49→19:39)
--- NOTE | 2017-09-11 16:27 | CP.PCM.PN ---
<Mario Borja - Last Filed: 09/12/17 03:42> Subjective - Date & Time of Evaluation Date of Evaluation: 09/11/17 Time of Evaluation: 16:22 - Subjective Subjective: Mario Borja DO - PGY1 [facility] [employer] - Medicine Progress note Seen this AM at bedside; no acute events reported overnight. Pt. has been mentally at baseline. Tremors have shown no progression or worsening at this time. Vitals overnight showed a slight bradycardia; however denies any palpitations, CP, and SOB. Pt. also denies Abd Pain, N/V/D/C, BRUNER, BV. 12 point ROS otherwise negative. Objective - Vital Signs/Intake and Output Vital Signs (last 24 hours): Temp Pulse Resp BP Pulse Ox 97.4 F L 54 L 18 158/78 H 100 09/11/17 08:16 09/11/17 10:02 09/11/17 08:16 09/11/17 10:02 09/11/17 08:16 Intake and Output: 09/11/17 09/11/17 06:59 18:59 Intake Total 420 Output Total 200 400 Balance -200 20 - Medications Medications: Current Medications Acetaminophen (Tylenol 325mg Tab) 650 mg PO Q6H PRN PRN Reason: Pain, moderate (4-7) Atorvastatin Calcium (Lipitor) 20 mg PO DAILY [facility] Last Admin: 09/11/17 10:02 Dose: 20 mg Docusate Sodium (Colace) 100 mg PO BID [facility] Last Admin: 09/11/17 10:02 Dose: 100 mg Donepezil HCl (Aricept) 10 mg PO QPM [facility] Last Admin: 09/10/17 17:15 Dose: 10 mg Enoxaparin Sodium (Lovenox) 40 mg SC DAILY [facility] PRN Reason: Protocol Last Admin: 09/11/17 10:02 Dose: 40 mg Ergocalciferol (Drisdol 50,000 Intl Units Cap) 1 cap PO WED [facility] Levothyroxine Sodium (Synthroid) 112 mcg PO 0600 [facility] Last Admin: 09/11/17 05:03 Dose: 112 mcg Losartan Potassium (Cozaar) 50 mg PO DAILY [facility] Last Admin: 09/11/17 10:02 Dose: 50 mg Meclizine HCl (Antivert) 25 mg PO TID PRN PRN Reason: Dizziness Non-Formulary Medication (Solifenacin Succinate [Vesicare]) 5 mg PO DAILY [facility] Last Admin: 09/11/17 10:03 Dose: Not Given Nystatin (Nystop Topical Powder) 1 gm TOP BID [facility] Last Admin: 09/11/17 11:49 Dose: 1 gm Pantoprazole Sodium (Protonix Ec Tab) 40 mg PO 0600 [facility] Last Admin: 09/11/17 05:03 Dose: 40 mg Propranolol HCl (Inderal) 40 mg PO DAILY [facility] Last Admin: 09/11/17 10:01 Dose: 40 mg - Labs Labs: 09/11/17 06:30 09/11/17 06:30 PT 11.5 SECONDS (9.4-12.5) 09/08/17 17:00 INR 1.01 (0.93-1.08) 09/08/17 17:00 APTT 30.1 Seconds (25.1-36.5) 09/08/17 17:00 Physical Exam Constitutional Appears: Well, Non-toxic, No Acute Distress - Head Exam Head Exam: ATRAUMATIC, NORMOCEPHALIC - Eye Exam Eye Exam: EOMI, PERRL, Scleral icterus - Respiratory Exam Respiratory Exam: Clear to Ausculation Bilateral, Wheezes, NORMAL BREATHING PATTERN. absent: Rhonchi - Cardiovascular Exam Cardiovascular Exam: REGULAR RHYTHM, Rate bradycardic, +S1, +S2, Murmur - GI/Abdominal Exam GI & Abdominal Exam: Soft. absent: Tenderness Additional comments: Colostomy bag present - Extremities Exam Additional comments: Tremors in upper and lower extremities; fasiculations appreciated. - Neurological Exam Neurological Exam: Alert, Awake Additional comments: Resting tremors do not extinguish with targeted movement; no worse from day prior. Gross strength BL UE and LE intact 5/5, Myerson's sign positive. - Psychiatric Exam Psychiatric exam: Normal Affect, Normal Mood Assessment and Plan - Assessment and Plan (Free Text) Assessment: 72 y o female PMhx of Alzheimer's disease, hypothyroidism, hypertension, hyperlipidemia, colon cancer (s/p colostomy at least five years ago) presented with worsening tremor and episode of weakness at home. R/o benign familial tremor, CVA/TIA, Parkinson's disease, as possible etiologies. Plan: Worsening tremor CT head negative for acute pathology; only chronic microvascular changes Unable to perform MRI 2/2 hardware Tremor Neuro consulted (Dr. Guerrero), apprecite recs Started Propranolol 40 QD Bradycardia Most likely Iatrogenic 2/2 propranolol; r/o any other underlying abnormalities Pt. asymptomatic overnight and on exam. Physical exam w/ bradycardia on auscultation. Pt HR normal until 09/10 Follow up EKG official read Weakness Likely secondary to worsening tremor vs. CVA/TIA Less likely due to pre-syncopal episode Carotid doppler - BL 20-39% stenosis of proximal ICA ; Anterograde flow in both vertebral arteries PT Eval: PT w/ [employer] services 2/2 difficulty walking Hx hypothyroidism TSH 42 Pt home dose 88mcg maintained since before January 2017 Increased dose from 88mcg to 112mcg Endocrinology consulted F/u repeat TSH as outpatient in 6 weeks Hx HTN Cont Losartan 50 QD Started Propranolol 40 QD for tremors; monitor pressures If pressures continue to remain elevated; will increase dose/frequency of Losartan. Hx HLD Lipitor 20 Lipid panel within range Hx Alzheimer's disease At baseline C/w Aricept 10 mg GI/ DVT Prophylaxis: Protonix/ Lovenox Dispo: Once medically stable, patient will be discharged home w/ PT and [employer] services Pt. was seen, examined, and discussed at length w/ attending Dr. Jovanny Borja DO - PGY1 [facility] [employer] - Pager [phone] <Lori Petty - Last Filed: 09/12/17 17:28> Objective - Vital Signs/Intake and Output Vital Signs (last 24 hours): Temp Pulse Resp BP Pulse Ox 97.6 F 72 18 103/70 97 09/12/17 08:37 09/12/17 10:44 09/12/17 08:37 09/12/17 08:37 09/12/17 08:37 Intake and Output: 09/12/17 09/12/17 06:59 18:59 Output Total 300 Balance -300 - Medications Medications: Current Medications Acetaminophen (Tylenol 325mg Tab) 650 mg PO Q6H PRN PRN Reason: Pain, moderate (4-7) Atorvastatin Calcium (Lipitor) 20 mg PO DAILY [facility] Last Admin: 09/12/17 10:45 Dose: 20 mg Docusate Sodium (Colace) 100 mg PO BID [facility] Last Admin: 09/12/17 10:43 Dose: 100 mg Donepezil HCl (Aricept) 10 mg PO QPM [facility] Last Admin: 09/11/17 19:34 Dose: 10 mg Enoxaparin Sodium (Lovenox) 40 mg SC DAILY [facility] PRN Reason: Protocol Last Admin: 09/12/17 10:45 Dose: 40 mg Ergocalciferol (Drisdol 50,000 Intl Units Cap) 1 cap PO WED [facility] Levothyroxine Sodium (Synthroid) 112 mcg PO 0600 [facility] Last Admin: 09/12/17 05:55 Dose: 112 mcg Losartan Potassium (Cozaar) 50 mg PO DAILY [facility] Last Admin: 09/12/17 10:44 Dose: 50 mg Meclizine HCl (Antivert) 25 mg PO TID PRN PRN Reason: Dizziness Non-Formulary Medication (Solifenacin Succinate [Vesicare]) 5 mg PO DAILY [facility] Last Admin: 09/12/17 13:54 Dose: Not Given Nystatin (Nystop Topical Powder) 1 gm TOP BID [facility] Last Admin: 09/12/17 10:46 Dose: 1 gm Pantoprazole Sodium (Protonix Ec Tab) 40 mg PO 0600 [facility] Last Admin: 09/12/17 05:55 Dose: 40 mg Propranolol HCl (Inderal) 40 mg PO DAILY [facility] Last Admin: 09/12/17 10:44 Dose: 40 mg - Labs Labs: 09/12/17 06:00 09/12/17 06:00 PT 11.5 SECONDS (9.4-12.5) 09/08/17 17:00 INR 1.01 (0.93-1.08) 09/08/17 17:00 APTT 30.1 Seconds (25.1-36.5) 09/08/17 17:00 Attending/Attestation - Attestation I have personally seen and examined this patient.: Yes I have fully participated in the care of the patient.: Yes I have reviewed all pertinent clinical information, including history, physical exam and plan: Yes Notes (Text): 09/12/17 17:26 Medical record note made by the resident after discussion with my direction and input after the patient was personally seen and examined by me. I have reviewed the chart and agree that the record accurately reflects by personal performance of the history, physical exam, data review, and medical decision-making, in the course for the patient. I have also personally directed the plan of care. 72 yrsold female with PMh of Alzheimer's disease, hypothyroidism, hypertension , hyperlipidemia, colon cancer (s/p colostomy at least five years ago) presented with worsening tremor and episode of weakness at home. Patient does not has any new weakness.Tremors are most likely essential, patient has been evaluated by Neurology and has been started on Propanolol.Patient was evakuated by physical therapy and home services has been recommended. TSH is elevated, levothyroxine dose is increased to 112 mcg po daily, endocrone evaluation is appreciated.. Management plan was discussed in detail with patient son. Education was provided.
--- NOTE | 2017-09-11 17:01 | CARD ---
APPROVED REPORT Date of service: 09/11/2017 EKG Measurement Heart [id number] <Conclusion> Marked sinus bradycardia Cannot rule out Anterior infarct, age undetermined Abnormal ECG
[2017-09-11 18:16] VITALS: O2SAT 97
[2017-09-12] MEDS: Pantoprazole 40 mg EC Tab PO SCH (05:55)
[2017-09-12] MEDS: Levothyroxine 112 MCG TAB PO SCH (05:55)
[2017-09-12 06:44] LABS: BASO # 0.05 K/mm3 (0.0-2.0); BASO % 0.7 % (0.0-3.0); EOS # 0.3 (0.0-0.7); EOS % 3.8 % (1.5-5.0); GRAN # 4.69 (1.4-6.5); GRAN % 69.2 % (50.0-68.0); HEMOGLOBIN 14.4 g/dL (12.0-16.0); LYMPH # 1.2 (1.2-3.4); LYMPH % 16.9 % (22.0-35.0); MEAN CELL VOLUME 87.7 fl (80.0-105.0); MEAN CORPUSCULAR HEMOGLOBIN 30.4 pg (25.0-35.0); MEAN CORPUSCULAR HGB CONC 34.7 g/dl (31.0-37.0); MEAN PLATELET VOLUME 12.1 fl (7.0-11.0); MONO # 0.6 (0.1-0.6); MONO % 9.4 % (1.0-6.0); RBC 4.73 10^6/uL (3.5-6.1); RED CELL DISTRIBUTION WIDTH 15.1 % (11.5-14.5); WHITE BLOOD COUNT 6.8 10^3/ul (4.5-11.0)
[2017-09-12 07:05] LABS: FREE T4 1.92 ng/dL (0.78-2.19)
[2017-09-12 07:22] LABS: ALB/GLOB RATIO 1.2 (1.1-1.8); ALBUMIN 4.4 g/dL (3.0-4.8); ALT/SGPT 19 U/L (7-56); AST/SGOT 26 U/L (14-36); BLOOD UREA NITROGEN 16 mg/dL (7-21); CALCIUM 10.1 mg/dL (8.4-10.5); GFR AFRICAN-AMERICAN > 60; GFR NON-AFRICAN AMERICAN > 60
[2017-09-12 08:38] VITALS: BP 103/70; PULSE 72; TEMP 97.6
--- NOTE | 2017-09-12 09:37 | CON ---
DATE: ENDOCRINOLOGY CONSULT LOCATION: Room 375. HISTORY OF PRESENT ILLNESS: This is a 72-year-old female with no history of Alzheimer disease with concomitant tremors and admitted here with worsening generalized body weakness and gait instability and loss of balance, with also worsening upper and lower extremity tremors and is being referred also now for Endocrine evaluation because of persistent hypothyroidism. PAST MEDICAL HISTORY: As mentioned above, history of generalized tremors, followed closely by neurologist with concomitant Alzheimer disease and dementia, history of hypertension and dyslipidemia, history of hypothyroidism, currently on levothyroxine taken as 88 mcg once daily, history of colon cancer with previous total colectomy and subsequent placement of a colostomy as noted. History of diffuse osteoarthritis, especially, in the lower back and knees and underwent actually left knee surgery some years ago. FAMILY HISTORY: Positive for hypertension, diabetes and heart disease. SOCIAL HISTORY: Admits to prior nicotine dependence for over 30 years, but quit a few years ago. She has very supportive son and family. No other known substance use. REVIEW OF SYSTEMS: As mentioned above. Admits to generalized body weakness with easy fatigability and tiredness and suboptimal energy level. She also has worsening tremors in both upper and lower extremities, especially, in the right hand with associated generalized weakness in both the right hand and left lower extremity. No chest pains or palpitations or PND. Her oral intake has been variable with nausea, dyspepsia and variable oral intake. Also admits to upper and lower extremity paresthesias and is being followed closely by her neurologist, Dr. Guerrero. PHYSICAL EXAMINATION: GENERAL: This is an average-built female, in no apparent distress. VITAL SIGNS: Blood pressure of 140/80, pulse of 70 beats per minute regular, temperature 98, respirations 20, height is 5 feet, weight is 129 pounds. HEENT: Head normocephalic. Eyes anicteric with pink conjunctivae. Funduscopy not possible at this time. Ears, Nose and Throat otherwise normal. NECK: Supple. Thyroid gland is normal in size. No carotid bruits or any palpable thyroid nodules or masses. HEART: Adynamic precordium. S1, S2 is rapid and regular. LUNGS: Clear to auscultation. ABDOMEN: Flat, soft with positive bowel sounds. EXTREMITIES: No peripheral edema. Pulses are +2 bilaterally. LABORATORY DATA: Her hemoglobin is 14, hematocrit of 40. WBC is 7.1 and platelets 223. Her chemistry showed a BUN of 15, sodium 144, potassium 4.2, chloride 105, CO2 of 28, glucose 97 and creatinine 0.8. Her glucose values have ranged from 84-138 mg/dL. Her TSH is 23.90 done yesterday. ASSESSMENT: This is a 72-year-old female with overt hypothyroidism noted biochemically, although, she remains clinically euthyroid at this time with possible underlying autoimmune thyroiditis as she has been on levothyroxine replacement therapy as noted. She presents here with worsening instability and loss of balance with upper and lower extremity tremors and weakness as noted thereof. PLAN OF MANAGEMENT: We will concur with the present medical and neurological workup and management at this time and we will also concur with the dose titration of her levothyroxine to 112 mcg starting today as ordered. We will obtain a comprehensive thyroid hormonal profile tomorrow with a total and free T4 and TSH as ordered. We will add a thyroid peroxidase antibody, which will confirm and/or indicate the presence of underlying thyroid autoimmunity. We will titrate her dose regimen accordingly as indicated to optimize metabolic control. We will obtain serial chemistries and supplement accordingly as needed. We will follow and advise accordingly. Richa De La Rosa MD
[2017-09-12] MEDS: Enoxaparin 40 mg Syringe SC SCH (10:45)
[2017-09-12] MEDS: Nystatin 100,000 Units/gm Topical Pow(15 gm) TOP SCH (10:46)
--- NOTE | 2017-09-12 13:13 | CP.PCM.DIS ---
Provider - Provider Date of Admission: 09/08/17 19:58 Attending physician: Lori Petty MD Primary care physician: Aimee Zhou MD Consults: Neurology - Dr. Guerrero Time Spent in preparation of Discharge (in minutes): 45 Hospital Course - Lab Results Lab Results: Most Recent Lab Values WBC 6.8 10^3/ul (4.5-11.0) 09/12/17 06:00 RBC 4.73 10^6/uL (3.5-6.1) 09/12/17 06:00 Hgb 14.4 g/dL (12.0-16.0) 09/12/17 06:00 Hct 41.5 % (36.0-48.0) 09/12/17 06:00 MCV 87.7 fl (80.0-105.0) 09/12/17 06:00 MCH 30.4 pg (25.0-35.0) 09/12/17 06:00 MCHC 34.7 g/dl (31.0-37.0) 09/12/17 06:00 RDW 15.1 % (11.5-14.5) H 09/12/17 06:00 Plt Count 216 10^3/uL (120.0-450.0) 09/12/17 06:00 MPV 12.1 fl (7.0-11.0) H 09/12/17 06:00 Gran % 69.2 % (50.0-68.0) H 09/12/17 06:00 Lymph % (Auto) 16.9 % (22.0-35.0) L 09/12/17 06:00 Gillespie % (Auto) 9.4 % (1.0-6.0) H 09/12/17 06:00 Eos % (Auto) 3.8 % (1.5-5.0) 09/12/17 06:00 Baso % (Auto) 0.7 % (0.0-3.0) 09/12/17 06:00 Gran # 4.69 (1.4-6.5) 09/12/17 06:00 Lymph # (Auto) 1.2 (1.2-3.4) 09/12/17 06:00 Gillespie # (Auto) 0.6 (0.1-0.6) 09/12/17 06:00 Eos # (Auto) 0.3 (0.0-0.7) 09/12/17 06:00 Baso # (Auto) 0.05 K/mm3 (0.0-2.0) 09/12/17 06:00 PT 11.5 SECONDS (9.4-12.5) 09/08/17 17:00 INR 1.01 (0.93-1.08) 09/08/17 17:00 APTT 30.1 Seconds (25.1-36.5) 09/08/17 17:00 pO2 45 mm/Hg (30-55) 09/08/17 17:05 VBG pH 7.36 (7.32-7.43) 09/08/17 17:05 VBG pCO2 49.0 (40-60) 09/08/17 17:05 VBG HCO3 27.7 mmol/l (21-28) 09/08/17 17:05 VBG Total CO2 29.2 mmol.L (22-28) H 09/08/17 17:05 VBG O2 Sat (Calc) 84.3 % (40-65) H 09/08/17 17:05 VBG Base Excess 1.5 mmol/L (0.0-2.0) 09/08/17 17:05 VBG Potassium 4.4 mmol/L (3.6-5.2) 09/08/17 17:05 Sodium 138.0 mmol/L (132-148) 09/08/17 17:05 Chloride 105.0 mmol/L (98-107) 09/08/17 17:05 Glucose 113 mg/dl (65-105) H 09/08/17 17:05 Lactate 1.3 mmol/L (0.7-2.1) 09/08/17 17:05 FiO2 21.0 % 09/08/17 17:05 Sodium 143 mmol/L (132-148) 09/12/17 06:00 Potassium 4.8 mmol/L (3.6-5.0) 09/12/17 06:00 Chloride 105 mmol/L (98-107) 09/12/17 06:00 Carbon Dioxide 25 mmol/L (21-33) 09/12/17 06:00 Anion Gap 17 (10-20) 09/12/17 06:00 BUN 16 mg/dL (7-21) 09/12/17 06:00 Creatinine 0.9 mg/dl (0.7-1.2) 09/12/17 06:00 Est GFR ( Amer) > 60 09/12/17 06:00 Est GFR (Non-Af Amer) > 60 09/12/17 06:00 POC Glucose (mg/dL) 138 mg/dL (65-110) H 09/11/17 10:59 Random Glucose 101 mg/dL (70-110) 09/12/17 06:00 Hemoglobin A1c 6.0 % (4.2-6.5) 09/12/17 06:00 Calcium 10.1 mg/dL (8.4-10.5) 09/12/17 06:00 Magnesium 2.2 mg/dL (1.7-2.2) 09/09/17 06:30 Total Bilirubin 0.8 mg/dL (0.2-1.3) 09/12/17 06:00 AST 26 U/L (14-36) 09/12/17 06:00 ALT 19 U/L (7-56) 09/12/17 06:00 Alkaline Phosphatase 70 U/L (38-126) 09/12/17 06:00 Lactate Dehydrogenase 511 U/L (333-699) 09/08/17 17:00 Total Creatine Kinase 60 U/L (35-230) 09/08/17 17:00 Troponin I < 0.01 ng/mL 09/08/17 17:00 Total Protein 8.1 g/dL (5.8-8.3) 09/12/17 06:00 Albumin 4.4 g/dL (3.0-4.8) 09/12/17 06:00 Globulin 3.7 gm/dL 09/12/17 06:00 Albumin/Globulin Ratio 1.2 (1.1-1.8) 09/12/17 06:00 Triglycerides 82 mg/dL (35-160) 09/09/17 06:30 Cholesterol 182 mg/dL (130-200) 09/09/17 06:30 LDL Cholesterol Direct 88 mg/dL (0-129) 09/09/17 06:30 HDL Cholesterol 70 mg/dL (29-60) H 09/09/17 06:30 Free T4 1.92 ng/dL (0.78-2.19) 09/12/17 06:00 Thyroxine (T4) 10.0 ug/dL (5.5-11.0) 09/12/17 06:00 Total T3 1.14 ng/mL (0.97-1.69) 09/09/17 06:30 TSH 3rd Generation 26.60 mIU/mL (0.46-4.68) H 09/12/17 06:00 Venous Blood Potassium 4.4 mmol/L (3.6-5.2) 09/08/17 17:05 Urine Color Straw (YELLOW) 09/08/17 17:00 Urine Appearance Clear (CLEAR) 09/08/17 17:00 Urine pH 7.0 (4.7-8.0) 09/08/17 17:00 Ur Specific Lizemores <= 1.005 (1.005-1.035) 09/08/17 17:00 Urine Protein Negative mg/dL (<30 mg/dL) 09/08/17 17:00 Urine Glucose (UA) Negative mg/dL (NEGATIVE) 09/08/17 17:00 Urine Ketones Negative mg/dL (NEGATIVE) 09/08/17 17:00 Urine Blood Negative (NEGATIVE) 09/08/17 17:00 Urine Nitrate Negative (NEGATIVE) 09/08/17 17:00 Urine Bilirubin Negative (NEGATIVE) 09/08/17 17:00 Urine Urobilinogen 0.2 E.U./dL (<1 E.U./dL) 09/08/17 17:00 Ur Leukocyte Esterase Moderate Brady/uL (NEGATIVE) H 09/08/17 17:00 Urine RBC Negative /hpf (0-2) 09/08/17 17:00 Urine WBC 1 - 3 /hpf (0-6) 09/08/17 17:00 Ur Epithelial Cells 0 - 2 /hpf (0-5) 09/08/17 17:00 Urine Bacteria Neg (NEG) 09/08/17 17:00 - Hospital Course Hospital Course: Elieser Martínez DO PGY-1, [facility] [employer] Medicine Discharge Summary This is a 72 year old female with PMH of Alzheimer's disease, hypothyroidism, hypertension, hyperlipidemia, colon cancer (s/p colostomy at least five years ago) who presented to ED on 09/08/17 with her son for concerns of worsening tremor and an episode of weakness. According to her son, she had a worsening tremor around 2pm in the afternoon prior to admission, and then she had to suddenly grab on to a bar to keep her balance while ambulating to the bathroom. Patient is a poor historian and is unsure why she is in the hospital. Most of the history was obtained from discussion with ED physician who spoke to her son earlier. Patient did complain that her tremors were worse and that "her mind isn 't here." She admitted that the tremors get worse when she is trying to grab or do something. She admitted to numbness in both hands and worsening weakness in her right hand. She admitted to weakness in her LLE ever since her knee surgery. Denied speech changes, facial drooping, changes in sensation. She also denies fever, chills, chest pain, SOB, nausea, vomiting, abdominal pain. EKG and CXR were negative in ED. CT head demonstrated no acute changes. MRI was deferred due to pt having metal in L leg from prior surgery. Pt also had elevated TSH at level of 42. Pt's synthroid dose was changed from 88 to 122 mcg , and endocrinology was consulted for abnormal TSH. Pt's family was instructed to have repeat TSH done as outpatient at PCP's office. Neurology was consulted for the worsening tremors, stated that it was likely secondary to benign/ familial tremor, and recommended starting propranolol as treatment for the tremors. Carotid artery doppler demonstrated 20-39% stenosis and anterograde flow in the vertebral arteries. PT evaluated pt and recommended home with PT services. On day of discharge pt was tolerating PO diet, appeared at baseline, and did not demonstrate worsening tremors on exam. She was d/c to home in stable condition on 09/12/17 with instructions to f/u with PCP and Neurology ( Dr. Guerrero) within 1 week of discharge. Discharge Exam - Head Exam Head Exam: ATRAUMATIC, NORMAL INSPECTION, NORMOCEPHALIC - Eye Exam Eye Exam: EOMI, Normal appearance, PERRL - ENT Exam ENT Exam: Mucous Membranes Moist, Normal Oropharynx - Neck Exam Neck exam: Full Rom, Normal Inspection - Respiratory Exam Respiratory Exam: Clear to PA & Lateral, NORMAL BREATHING PATTERN, UNREMARKABLE - Cardiovascular Exam Cardiovascular Exam: REGULAR RHYTHM, +S1, +S2 - GI/Abdominal Exam GI & Abdominal Exam: Normal Bowel Sounds, Unremarkable - Neurological Exam Neurological exam: Alert, CN II-XII Intact, Normal Gait - Psychiatric Exam Psychiatric exam: Normal Affect, Normal Mood - Skin Skin Exam: Dry, Intact, Normal Color, Warm Discharge Plan - Discharge Medications Prescriptions: Levothyroxine [Synthroid] 112 mcg PO DAILY #30 tab Propranolol [Inderal] 40 mg PO DAILY #14 tab - Follow Up Plan Condition: FAIR Disposition: HOME/ ROUTINE Instructions: Tremor, Essential Tremor, Preventing Falls in the Older Adult, Near Fainting, Near Fainting (DC) Additional Instructions: Please follow-up with your primary care physician within 1 week of discharge. Please follow up with Neurology (Dr. Guerrero) within 1 week of discharge. Please take medications as prescribed. Should symptoms recur or worsen, please go to your nearest emergency department. Referrals: Aimee Zhou MD [Primary Care Provider] -
[2017-09-12] MEDS: SOLIFENACIN SUCCINATE 5 MG PO SCH (13:54)
--- NOTE | 2017-09-12 20:03 | PN ---
DATE: 09/12/2017 ENDOCRINOLOGY FOLLOWUP NOTE LOCATION: In room 375. SUBJECTIVE: This is a 72-year-old female with recent generalized body weakness and worsening tremors in both upper and lower extremities and is now also being followed closely for metabolic management. She remains clinically euthyroid and biochemically has evidence of moderate hypothyroidism with a TSH today of 26.6 and a free T4 of 1.92 and a total T4 or thyroxine level of 10. Her chemistry shows a BUN of 16, sodium 143, potassium 4.8, chloride 105, CO2 of 25, glucose 101, and creatinine 0.9. ASSESSMENT: This is a 72-year-old female with overt hypothyroidism, most likely related to under replacement of her levothyroxine medications with underlying autoimmune thyroiditis and is now undergoing neurologic workup at this time as noted thereof. She remains clinically euthyroid, although biochemically has moderate hypothyroidism as mentioned. PLAN OF MANAGEMENT: We will titrate her levothyroxine for 125 mcg once daily in the morning to start tomorrow morning as ordered to optimize metabolic control. We will continue the serial chemistry and supplement accordingly as needed. We will also await the reports of the thyroid peroxidase antibody, which will confirm and/or indicate the presence of underlying thyroid autoimmunity. We will concur with the present management and workup of Neurology given and noted. We will follow this. Richa De La Rosa MD
[2017-09-14] MEDS ORDERED: Ergocalciferol 50,000 Intl Units Cap PO SCH (10:00)
== END 2017-09-12 18:29 | disposition home or self-care (01) | DRG 57 ==
LOC: ED 14:43 → ERH 19:58 → 2RSO 09-09 00:30 → 3RSO 09-10 11:50
PROVIDERS: ADMIT Internal Medicine; ATTEND Internal Medicine
DX: G30.9 Alzheimer's disease, unspecified (principal); G25.0 Essential tremor; F02.80 Dementia in other diseases classified elsewhere, unspecified severity, without behavioral disturbance, psychotic disturbance, mood disturbance, and anxiety; E78.5 Hyperlipidemia, unspecified; Z82.49 Family history of ischemic heart disease and other diseases of the circulatory system; Z83.3 Family history of diabetes mellitus; Z82.3 Family history of stroke; Z83.6 Family history of other diseases of the respiratory system; E03.9 Hypothyroidism, unspecified; F17.210 Nicotine dependence, cigarettes, uncomplicated; I10 Essential (primary) hypertension; Z79.899 Other long term (current) drug therapy; Z85.038 Personal history of other malignant neoplasm of large intestine; Z90.49 Acquired absence of other specified parts of digestive tract; Z90.710 Acquired absence of both cervix and uterus; Z93.3 Colostomy status

== ENCOUNTER 2017-11-14 16:20 | Inpatient (IN) | payer MEDICARE, OTHER ==
--- NOTE | 2017-11-14 16:43 | ED PDOC ---
"Arrival/HPI - General Time Seen by Provider: 11/14/17 16:35 Historian: Patient - History of Present Illness Narrative History of Present Illness (Text): 11/14/17 16:37 72 y/o female, pmh including htn/hypothyroidism/hld/diverticulitis/demantia, limited HPI can be obtained due to the demantia, last known well about 18 hours ago, chronically bedbound, post menopausal, biba c/o confusion and fatigue started last night around 9pm. Pt. is usually non-verbal (baseline is slow and slurred to articulate) and chronically bed bound but she has been more fatigue and confused last night as per family, associated with an episode of tremors and shakes with eyes rolling back started about 1 hour ago which resolved upon arrival. Pt. has no fever/chills/night sweat, no rash, no night sweat, no dizziness, no diarrhea, has colostomy bag with no abnormal discharges. Past Medical History - Provider Review Nursing Documentation Reviewed: Yes - Infectious Disease Hx of Infectious Diseases: None - Tetanus Immunization Tetanus Immunization: Unknown - Cardiac Hx Hypertension: Yes - Pulmonary Hx Respiratory Disorders: No Hx Asthma: Yes Hx Chronic Obstructive Pulmonary Disease (COPD): Yes Hx Emphysema: Yes Hx Pneumonia: Yes Hx Respiratory Aspiration: No Hx Respiratory Tract Infection: No Hx Sleep Apnea: No Hx Tuberculosis: No - Neurological Hx Alzheimer's Disease: Yes - HEENT Hx HEENT Disorder: Yes (Use of glasses) - Renal Hx Renal Disorder: No Hx Dialysis: No Hx Kidney Stones: No Hx Neurogenic Bladder: No Hx Pyelonephritis: No Hx Renal Cancer: No Hx Renal Failure: No - Endocrine/Metabolic Hx Hypothyroidism: Yes - Hematological/Oncological Hx Cancer: Yes (colon ca) - Integumentary Hx Dermatological Disorder: No - Musculoskeletal/Rheumatological Hx Falls: Yes - Gastrointestinal Hx Colostomy: Yes - Psychiatric Hx Emotional Abuse: No Hx Physical Abuse: No Hx Substance Use: No - Surgical History Hx Hysterectomy: Yes - Anesthesia Hx Anesthesia Reactions: Yes (CONFUSION) Hx Malignant Hyperthermia: No - Suicidal Assessment Feels Threatened In Home Enviroment: No Family/Social History - Physician Review Nursing Documentation Reviewed: Yes Family/Social History: Unknown Family HX Smoking Status: Current Some Days Smoker Hx Alcohol Use: No Hx Substance Use: No Hx Substance Use Treatment: No Allergies/Home Meds Allergies/Adverse Reactions: Allergies No Known Allergies Allergy (Verified 09/08/17 14:57) Home Medications: Home Meds Medication Instructions Recorded Confirmed Atorvastatin [Lipitor] 20 mg PO DAILY 07/01/15 11/14/17 Cyanocobalamin [Vitamin B12 1000 1,000 mcg IM Q14D 07/01/15 11/14/17 mcg/ml Inj] Donepezil HCl [Aricept] 10 mg PO QPM 07/01/15 11/14/17 Ergocalciferol (Vitamin D2) 50,000 iu PO WED 07/01/15 11/14/17 [Vitamin D2] Losartan Potassium 50 mg PO DAILY 07/01/15 11/14/17 Meclizine [Meclizine*] 25 mg PO TID PRN 07/01/15 11/14/17 Solifenacin Succinate [Vesicare] 5 mg PO DAILY 07/01/15 11/14/17 Carvedilol [Coreg] 3.125 mg PO ONCE 11/14/17 11/14/17 Tramadol HCl [Ultram] 50 mg PO BID 11/14/17 11/14/17 Review of Systems - Review of Systems Systems not reviewed;Unavailable: Dementia Physical Exam Vital Signs Reviewed: Yes Vital Signs Temp Pulse Resp BP Pulse Ox 11/14/17 16:42 97.8 F 86 18 146/97 H 95 Temperature: Afebrile Blood Pressure: Hypertensive Pulse: Regular Respiratory Rate: Normal Appearance: Positive for: Well-Appearing, Non-Toxic, Comfortable Pain Distress: None - Systems Exam Head: Present: Atraumatic, Normocephalic Pupils: Present: PERRL Extroacular Muscles: Present: EOMI Conjunctiva: Present: Normal Ears: Present: NORMAL TM, Normal Canal. No: Erythema Mouth: Present: Moist Mucous Membranes Neck: Present: Normal Range of Motion Respiratory/Chest: Present: Clear to Auscultation, Good Air Exchange. No: Respiratory Distress, Accessory Muscle Use, Wheezes, Retracting, Rhonchi Cardiovascular: Present: Regular Rate and Rhythm, Normal S1, S2. No: Murmurs Abdomen: Present: Other (visible colostomy bag on the lt. sided abdomen). No: Tenderness, Distention, Peritoneal Signs, Rebound, Guarding Back: Present: Normal Inspection Upper Extremity: Present: Normal Inspection. No: Cyanosis, Edema Lower Extremity: Present: Normal Inspection. No: Edema Neurological: Present: GCS=15, CN II-XII Intact, Motor Func Grossly Intact, Other (limited neurological exam due to the patient's demantia. ) Skin: Present: Warm, Dry, Normal Color. No: Rashes Psychiatric: Present: Alert, Normal Insight, Normal Concentration Medical Decision Making ED Course and Treatment: 11/14/17 16:47 -Labs/vbg/ua -CT head -Chest xray -EKG -IVF -Observe and reassess 11/14/17 18:26 -CT head show: Atrophy. Moderate nonspecific white matter changes as above. Question presence of dense right MCA sign. Please note that MRI with diffusion imaging is more sensitive in the detection of acute ischemic event. -Case discussed and radiology reviewed with Dr. Garrett, agreed with aspirin and needs admission for r/o stroke, pt. is outside of TPA window. She will need admission for MRI of the brain. Dr. Lassiter paged, pending for call back. 11/14/17 19:10 -Paged Dr. Lassiter again, pending for call back. 11/14/17 19:27 - paged for 3rd time as he is the neurologist and creative services coordinator. 11/14/17 19:46 -NIHSS is 2. -EKG: NSR @ 86 BPM, no ST elevation or depression, no T wave inversion. -Chest xray show No active disease. No significant interval change compared to the prior examination(s). -CT Head show Atrophy. Moderate nonspecific white matter changes as above. Question presence of dense right MCA sign. Please note that MRI with diffusion imaging is more sensitive in the detection of acute ischemic event. -Labs show no acute findings -Lactic acid within normal limit -UA ordered but no urine specieman -Swallow evaluation ordered. -I spoke to Dr. Lassiter, discussed about the case/labs/radiology result, recommend CTA head and neck, start aspirin and statin, bed at 30 degree, admit for work up r/o stroke 11/14/17 20:41 -I discussed the case/labs/radiology results with the admitting team, resident and Dr. Candelaria, examined the patient on bed side, they will follow up and further consult with the neurologist. 11/14/17 21:25 -CTA Head: 2-3 mm focal outpouching of contrast from distal basilar artery toward right posterior cerebral artery could represent proximal P1 segment with distal P1 occlusion or basilar tip aneurysm. Normal flow in right posterior cerebral artery P2 segment via posterior to indicating artery. Mild-moderate distal left internal carotid artery stenosis secondary to calcified plaque. Mild less than 50% distal right internal carotid artery stenosis secondary to calcified plaque. No right middle cerebral artery occlusion to account for questioned hyperdensity on prior CT. Non acute findings as above. -CTA Cervical: Mild less than 40% bilateral internal carotid artery stenoses. Mild calcified plaque in proximal vertebral arteries. No occlusion or hemodynamically significant stenosis. Right parotid gland masses. Differential considerations include lymphadenopathy and primary parotid gland tumors which could be benign or malignant. -Official report discussed with Dr. Lassiter, no further emergent treatment indicated need from the ER, agreed on the admission to [facility]. - Lab Interpretations Lab Results: 11/14/17 17:59 11/14/17 19:02 Lab Results 11/14/17 19:02: Sodium 140, Chloride 104, Potassium 4.6, Carbon Dioxide 27, Anion Gap 13, BUN 11, Creatinine 0.8, Est GFR ( Amer) > 60, Est GFR (Non- Af Amer) > 60, Random Glucose 120 H, Calcium 10.1, Magnesium 2.0, Total Bilirubin 0.8, AST 29, ALT 20, Alkaline Phosphatase 95, Total Creatine Kinase 42 , Total Protein 8.1, Albumin 4.3, Globulin 3.8, Albumin/Globulin Ratio 1.1 11/14/17 17:59: WBC 10.6 D, RBC 4.41, Hgb 13.6, Hct 39.4, MCV 89.3, MCH 30.8, MCHC 34.5, RDW 13.8, Plt Count 325, MPV 11.8 H, Gran % 83.7 H, Lymph % (Auto) 7.4 L, [place] % (Auto) 6.9 H, Eos % (Auto) 1.6, Baso % (Auto) 0.4, Gran # 8.88 H, Lymph # (Auto) 0.8 L, [place] # (Auto) 0.7 H, Eos # (Auto) 0.2, Baso # (Auto) 0.04 11/14/17 17:58: PT 13.2 H, INR 1.15, APTT 30.0 11/14/17 17:58: pO2 207 H, VBG pH 7.45 H, VBG pCO2 39.0 L, VBG HCO3 27.1, VBG Total CO2 28.3 H, VBG O2 Sat (Calc) 100.3 H, VBG Base Excess 3.0 H, VBG Potassium 6.3 H*, Sodium 135.0, Chloride 105.0, Glucose 125 H, Lactate 1.1, FiO2 21.0, Venous Blood Potassium 6.3 H* 11/14/17 16:30: POC Glucose (mg/dL) 120 H - RAD Interpretation Radiology Orders: 11/14/17 16:50 HEAD W/O CONTRAST [CT] Stat 11/14/17 16:52 CHEST PORTABLE [RAD] Stat 11/14/17 19:45 CTA HEAD/NECK CODE STROKE [CT] Stat CT Head: Date of service: 11/14/2017 PROCEDURE: CT HEAD WITHOUT CONTRAST. HISTORY: confused x 2 days COMPARISON: Noncontrast head CT performed 09/08/17 TECHNIQUE: Axial computed tomography images were obtained through the head/brain without intravenous contrast. Radiation dose: Total exam DLP = 1019.44 mGy-cm. This CT exam was performed using one or more of the following dose reduction techniques: Automated exposure control, adjustment of the mA and/or kV according to patient size, and/or use of iterative reconstruction technique. FINDINGS: HEMORRHAGE: No intracranial hemorrhage. BRAIN: Diffuse atrophy with prominence of the ventricles and sulci noted. No mass effect or edema. Moderate scattered periventricular and subcortical white matter hypodensities, which are nonspecific, but often seen with chronic microvascular ischemic disease. Question presence of dense right MCA . Please note that MRI with diffusion imaging is more sensitive in the detection of acute ischemic event. VENTRICLES: No hydrocephalus. CALVARIUM: Unremarkable. PARANASAL SINUSES: Unremarkable as visualized. No significant inflammatory changes. MASTOID AIR CELLS: Unremarkable as visualized. No inflammatory changes. OTHER FINDINGS: None. IMPRESSION: Atrophy. Moderate nonspecific white matter changes as above. Question presence of dense right MCA sign. Please note that MRI with diffusion imaging is more sensitive in the detection of acute ischemic event. Chest xray: Date of service: 11/14/2017 HISTORY: medical clearance COMPARISON: 09/08/2017. FINDINGS: LUNGS: No active pulmonary disease. PLEURA: No significant pleural effusion identified, no pneumothorax apparent. CARDIOVASCULAR: No radiographic findings to suggest acute or significant cardiovascular disease. OSSEOUS STRUCTURES: No significant abnormalities. VISUALIZED UPPER ABDOMEN: Normal. OTHER FINDINGS: None. IMPRESSION: No active disease. No significant interval change compared to the prior examination(s). CTA Head: CONTRAST: 100 mL of OMNI 350 administered intravenously. COMPARISON: CT - HEAD W/O CONTRAST 11/14/2017 5:58 PM FINDINGS: Right internal carotid artery: Calcified plaque in wall of distal right internal carotid artery. Mild less than 50% stenoses. Right anterior cerebral artery: No significant stenosis. No aneurysm. Right middle cerebral artery: No significant stenosis. No aneurysm. Right posterior cerebral artery: See below. Right vertebral artery: Unremarkable as visualized. Left internal carotid artery: Calcified plaque in the wall of the distal left internal carotid artery. Mild less than 50% stenoses in the cavernous segment and a mild-moderate stenosis at the junction of the cavernous and supraclinoid segments. Left anterior cerebral artery: No significant stenosis. No aneurysm.. TOMMY TOLBERT | Preliminary Radiology Report Page 2 of 3 Left middle cerebral artery: No significant stenosis. No aneurysm. Left posterior cerebral artery: No significant stenosis. No aneurysm. Left vertebral artery: Unremarkable as visualized. Basilar artery: 2 mm focal outpouching from the basilar tip toward the right along the expected course of the P1 segment of the right posterior cerebral artery. The focus of contrast does not extend to the P2 segment which fills via right posterior communicating artery. Other vasculature: Visualized v both enous sinuses are patent. Brain: Volume loss. Chronic small vessel white matter ischemia. No intracranial mass lesions or abnormal increased contrast-enhancement. Ventricles: Prominent caliber ventricles, likely relates to volume loss. No hydrocephalus. IMPRESSION: 2-3 mm focal outpouching of contrast from distal basilar artery toward right posterior cerebral artery could represent proximal P1 segment with distal P1 occlusion or basilar tip aneurysm. Normal flow in right posterior cerebral artery P2 segment via posterior to indicating artery. Mild-moderate distal left internal carotid artery stenosis secondary to calcified plaque. Mild less than 50% distal right internal carotid artery stenosis secondary to calcified plaque. No right middle cerebral artery occlusion to account for questioned hyperdensity on prior CT. Non acute findings as above. CTA Neck: 72 years old, female; Abnormal findings; Abnormal CT of the head; Additional info: Questionable dense on the rt. Mca on CT head TECHNIQUE: Axial computed tomographic angiography images of the neck with intravenous contrast using CT angiography protocol. All CT scans at this facility use at least one of these dose optimization techniques: automated exposure control; mA and/or kV adjustment per patient size (includes targeted exams where dose is matched to clinical indication); or iterative reconstruction. MIP reconstructed images were created and reviewed. Coronal and sagittal reformatted images were created and reviewed. CONTRAST: 100 mL of OMNI 350 administered intravenously. 100 mL of OMNI 350 administered intravenously. COMPARISON: No relevant prior studies available. FINDINGS: TOMMY TOLBERT | Preliminary Radiology Report [employer] ARCHITECT (QA) DISCREPANCY? If there is a discrepancy between the preliminary and final interpretation, please notify [facility] via [email or web address]. If you do not have access to our QA portal, call our QA team at [phone] CONFIDENTIALITY STATEMENT This report is intended only for the use of the referring physician, and only in accordance with law, If you received this in error, call [phone] Page 3 of 3 VASCULATURE: Right common carotid artery: Unremarkable. No significant stenosis. Right internal carotid artery: Calcified plaque in the wall of the proximal/ lower right internal carotid artery. Mild less than 40% stenoses. Right external carotid artery: Unremarkable. No occlusion. Right vertebral artery: Mild calcified plaque in the wall the proximal right vertebral artery which is not significantly narrowed. No occlusion. Left common carotid artery: No significant stenosis. No dissection or occlusion. Left internal carotid artery: Plaque in the wall of the left carotid bifurcation extending into the proximal left internal carotid artery. Mild less than 40% stenosis. Left external carotid artery: Unremarkable. No occlusion. Left vertebral artery: Minimal calcified plaque in the wall the proximal left vertebral artery no significant stenosis. NECK: Bones/joints: Degenerative changes in the spine. Slight retrolisthesis C3 on C4 and slight anterolisthesis C4 on C5, likely chronic. Thoracic kyphosis. No acute fracture. Soft tissues: Unremarkable as visualized. Dental: Majority of the teeth are absent. Submandibular/parotid glands: 2 adjacent right parotid gland masses with measuring approximately 1.8 cm and the larger more inferior mass measuring approximately 3.8 cm extending inferiorly to the level of the right submandibular gland. CAROTID STENOSIS REFERENCE USING NASCET CRITERIA: % ICA stenosis = (1 - narrowest ICA diameter/diameter of distal cervical ICA) x 100. Mild - <50% stenosis. Moderate - 50-69% stenosis. Severe - 70-94% stenosis. Near occlusion - 95-99% stenosis. Occluded - 100% stenosis. IMPRESSION: Mild less than 40% bilateral internal carotid artery stenoses. Mild calcified plaque in proximal vertebral arteries. No occlusion or hemodynamically significant stenosis. Right parotid gland masses. Differential considerations include lymphadenopathy and primary parotid gland tumors which could be benign or malignant. Thank you for allowing us to participate in the care of your patient. Dictated and Authenticated by: Bill Hung MD 11/14/2017 9:14 PM Eastern Time ([place] & [place]) Sales Development Coordinator: Radiologist - EKG Interpretation EKG Interpretation (Text): 11/14/17 16:48 -EKG: NSR @ 86 BPM, no ST elevation or depression, no T wave inversion. Interpreted by ED Physician: Yes Type: 12 lead EKG - Medication Orders Current Medication Orders: Acetaminophen (Tylenol 325mg Tab) 650 mg PO Q6H PRN PRN Reason: Fever >100.4 F Aspirin (Aspirin Chewable) 81 mg PO DAILY SPENCER Atorvastatin Calcium (Lipitor) 80 mg PO DIN SPENCER Sodium Chloride (Sodium Chloride 0.9%) 1,000 mls @ 100 mls/hr IV .Q10H SPENCER Last Admin: 11/14/17 17:45 Dose: 100 mls/hr eMAR Start Stop Document 11/14/17 17:45 [facility] (Rec: 11/14/17 17:45 [facility] [id number]) Intravenous Solution Start Date 11/14/17 Start Time 17:45 Oxycodone/Acetaminophen (Percocet 5/325 Mg Tab) 1 tab PO Q6H PRN PRN Reason: Pain, severe (8-10) Stop: 11/17/17 21:31 Discontinued Medications Aspirin (Aspirin) 325 mg PO STAT STA Stop: 11/14/17 18:29 Last Admin: 11/14/17 19:51 Dose: 325 mg Atorvastatin Calcium (Lipitor) 20 mg PO STAT STA Stop: 11/14/17 19:55 NIHSS Scale ([place]) Time Performed: 18:30 - How Severe is the Stoke Baseline Level of Consciousness: 0=Alert LOC to Questions: 0=Both comments correct LOC to commands: 0=Obeys both correctly Best Gaze: 1=Partial gaze palsy Visual: 0=No visual loss Facial: 0=Normal Motor Arm - Left: 0=No drift Motor Arm - Right: 0=No drift Motor Leg - Left: 0=No drift Motor Leg - Right: 0=No drift Limb Ataxia: 0=Absent Sensory: 0=Normal Best Language: 0=No aphasia Dysarthia: 1=Mild to moderate slurring Extinction & Inattention (Neglect): 0=Normal, no object Score: 2 Risk Level: Minor Stroke Risk rTPA Inclusion/Exclusion - Refusal of Treatment Patient Refused Treatment: No - Inclusion Criteria for Altepase Patient is 18 years or Older: Yes The Clinical Diagnosis of Ischemic Stroke That is Causing a Potentially Disabling Neurological Deficit: No Time of Onset is Well Established to be Less Than 270 Minute Before Treatment Would Begin: No Risk/Benefit Discussed With Patient/Family Member Present: Yes - Exclusion Criteria for Altepase Uncontrolled Hypertension at Time of Treatment (Systolic BP above 185 or Diastolic BP above 110 mmHg): No Known Bleeding Diathesis Including but Not Limited to: Platelets Below 100,000/ mm,PTT Above 40 sec After Heparin Use, Current Use of Oral Anitcoagulant With INR Greater Than 1.7 or PT Greater Than 15 secs: No Evidence of an Intracranial Hemorrhage: No Evidence of Major Acute Infarct With Signs Greater Than 1/3 MCA Territory: No - Warning to TPA With Conditions Following Conditions Weighed Against Anticipated Benefit: Yes Condition: Stroke Serevity Too Mild - PA / COSTUME CUTTER / Resident Statement / has reviewed & agrees with the documentation as recorded. / has examined the patient and agrees with the treatment plan. Disposition/Present on Arrival - Present on Arrival Any Indicators Present on Arrival: No History of DVT/PE: No History of Uncontrolled Diabetes: No Urinary Catheter: No History of Decub. Ulcer: No History Surgical Site Infection Following: None - Disposition Have Diagnosis and Disposition been Completed?: Yes Diagnosis: Abnormal CT scan, head, Has a tremor Disposition: HOSPITALIZED Disposition Time: 19:11 Patient Plan: Admission, Telemetry Patient Problems: Current Active Problems Problem Status Onset Has a tremor Acute Abnormal CT scan, head Acute Condition: STABLE"
[2017-11-14 16:49] VITALS: BMI 24.2
[2017-11-14] MEDS: Sodium Chloride 0.9% 1,000 ML IV SCH (17:45)
[2017-11-14 18:03] LABS: VENOUS BLOOD GAS PO2 207 mm/Hg (30-55); VENOUS BLOOD PH 7.45 (7.32-7.43)
[2017-11-14 18:06] LABS: BASO # 0.04 K/mm3 (0.0-2.0); BASO % 0.4 % (0.0-3.0); EOS # 0.2 (0.0-0.7); EOS % 1.6 % (1.5-5.0); GRAN # 8.88 (1.4-6.5); GRAN % 83.7 % (50.0-68.0); HEMOGLOBIN 13.6 g/dL (12.0-16.0); LYMPH # 0.8 (1.2-3.4); LYMPH % 7.4 % (22.0-35.0); MEAN CELL VOLUME 89.3 fl (80.0-105.0); MEAN CORPUSCULAR HEMOGLOBIN 30.8 pg (25.0-35.0); MEAN CORPUSCULAR HGB CONC 34.5 g/dl (31.0-37.0); MEAN PLATELET VOLUME 11.8 fl (7.0-11.0); MONO # 0.7 (0.1-0.6); MONO % 6.9 % (1.0-6.0); RBC 4.41 10^6/uL (3.5-6.1); RED CELL DISTRIBUTION WIDTH 13.8 % (11.5-14.5); WHITE BLOOD COUNT 10.6 10^3/ul (4.5-11.0)
--- NOTE | 2017-11-14 18:23 | CT ---
Date of service: 11/14/2017 PROCEDURE: CT HEAD WITHOUT CONTRAST. HISTORY: confused x 2 days COMPARISON: Noncontrast head CT performed 09/08/17 TECHNIQUE: Axial computed tomography images were obtained through the head/brain without intravenous contrast. Radiation dose: Total exam DLP = 1019.44 mGy-cm. This CT exam was performed using one or more of the following dose reduction techniques: Automated exposure control, adjustment of the mA and/or kV according to patient size, and/or use of iterative reconstruction technique. FINDINGS: HEMORRHAGE: No intracranial hemorrhage. BRAIN: Diffuse atrophy with prominence of the ventricles and sulci noted. No mass effect or edema. Moderate scattered periventricular and subcortical white matter hypodensities, which are nonspecific, but often seen with chronic microvascular ischemic disease. Question presence of dense right MCA . Please note that MRI with diffusion imaging is more sensitive in the detection of acute ischemic event. VENTRICLES: No hydrocephalus. CALVARIUM: Unremarkable. PARANASAL SINUSES: Unremarkable as visualized. No significant inflammatory changes. MASTOID AIR CELLS: Unremarkable as visualized. No inflammatory changes. OTHER FINDINGS: None. IMPRESSION: Atrophy. Moderate nonspecific white matter changes as above. Question presence of dense right MCA sign. Please note that MRI with diffusion imaging is more sensitive in the detection of acute ischemic event. Findings discussed with BARRETT Arrieta on at 6:17 p.m.
--- NOTE | 2017-11-14 18:36 | RAD ---
Date of service: 11/14/2017 HISTORY: medical clearance COMPARISON: 09/08/2017. FINDINGS: LUNGS: No active pulmonary disease. PLEURA: No significant pleural effusion identified, no pneumothorax apparent. CARDIOVASCULAR: No radiographic findings to suggest acute or significant cardiovascular disease. OSSEOUS STRUCTURES: No significant abnormalities. VISUALIZED UPPER ABDOMEN: Normal. OTHER FINDINGS: None. IMPRESSION: No active disease. No significant interval change compared to the prior examination(s).
[2017-11-14 19:20] LABS: ALB/GLOB RATIO 1.1 (1.1-1.8)
[2017-11-14 19:22] LABS: ALBUMIN 4.3 g/dL (3.0-4.8); ALT/SGPT 20 U/L (7-56); AST/SGOT 29 U/L (14-36); BLOOD UREA NITROGEN 11 mg/dL (7-21); CALCIUM 10.1 mg/dL (8.4-10.5); GFR NON-AFRICAN AMERICAN > 60
[2017-11-14] MEDS ORDERED: Iohexol 350 MG/100 ML VIAL ONE (20:02)
[2017-11-14 20:15] LABS: INR 1.15; PROTHROMBIN TIME 13.2 SECONDS (9.4-12.5)
--- NOTE | 2017-11-14 20:54 | CARD ---
APPROVED REPORT Date of service: 11/14/2017 EKG Measurement Heart [id number] <Conclusion> Normal sinus rhythm Minimal voltage criteria for LVH, may be normal variant Borderline ECG
--- NOTE | 2017-11-14 20:54 | CARD ---
APPROVED REPORT Date of service: 11/14/2017 EKG Measurement Heart [id number] <Conclusion> Normal sinus rhythm Minimal voltage criteria for LVH, may be normal variant Cannot rule out Inferior infarct, age undetermined Abnormal ECG
[2017-11-14] MEDS ORDERED: Oxycodone/Acetaminophen 5/325 mg Tab PO PRN (21:30)
--- NOTE | 2017-11-14 22:06 | CP.PCM.HP ---
<Nikhil Petersen - Last Filed: 11/15/17 04:24> History of Present Illness - History of Present Illness History of Present Illness: Nikhil Petersen, PGY-1 H&P for Hospitalist Service This is a 72 year old female with PMH of HLD, HTN, alzheimer's dementia, hypothyroidism, diverticulitis, colon cancer s/p colostomy 5 years ago and essential tremor presenting to the ED for AMS and generalized weakness. Per son , patient has had increased tremors over the last week and began slurring her speech over the past two days. Patient is bedbound and has chronic tremors, but has increased weakness and shakiness over the past few days. Patient sees Dr. Guerrero for the tremors and is prescribed propanolol but she has not been consistent in taking the medication per son. Patient also is not consistent with her synthroid medication. Patient has dementia and is poor historian at this time. Denies CP, SOB, headaches, back pain, abdominal pain, fevers, chills , urinary complaints, numbness, tingling, recent change in lifestyle and recent sickness. 12 point ROS noted here, otherwise unremarkable. In the ED, CT head showed atrophy, moderate nonspecific white matter changes. Question presence of dense right MCA sign. NIHSS is 2 and EKG showed NSR @ 86 BPM, no ST elevation or depression, no T wave inversion. Chest xray show no active disease. Lactic acid WNL. CTA Head showed 2-3 mm focal outpouching of contrast from distal basilar artery toward right posterior cerebral artery could represent proximal P1 segment with distal P1 occlusion or basilar tip aneurysm. Mild-moderate distal left internal carotid artery stenosis secondary to calcified plaque. Mild less than 50% distal right internal carotid artery stenosis secondary to calcified plaque. No right middle cerebral artery occlusion to account for questioned hyperdensity on prior CT. Non acute findings. CTA cervical showed mild less than 40% bilateral internal carotid artery stenoses. Mild calcified plaque in proximal vertebral arteries. No occlusion or hemodynamically significant stenosis. Patient will be admitted to [facility]. PMD: Dr. Aimee hZou PMH: as above SH: denies smoking, drinking and drugs Sx: left hip replacement, colectomy 5 years ago All: none FH: DM, thyroid and tremor Code Status: DNI (per son who states he is power of research attorney) Present on Admission - Present on Admission Any Indicators Present on Admission: No Past Patient History - Infectious Disease Hx of Infectious Diseases: None - Tetanus Immunizations Tetanus Immunization: Unknown - Past Social History Smoking Status: Current Some Days Smoker - CARDIAC Hx Hypertension: Yes - PULMONARY Hx Respiratory Disorders: No Hx Asthma: Yes Hx Chronic Obstructive Pulmonary Disease (COPD): Yes Hx Emphysema: Yes Hx Pneumonia: Yes Hx Respiratory Aspiration: No Hx Respiratory Tract Infection: No Hx Sleep Apnea: No Hx Tuberculosis: No - NEUROLOGICAL Hx Alzheimer's Disease: Yes - HEENT Hx HEENT Problems: Yes (Use of glasses) - RENAL Hx Chronic Kidney Disease: No Hx Dialysis: No Hx Kidney Stones: No Hx Neurogenic Bladder: No Hx Pyelonephritis: No Hx Renal (Kidney) Cancer: No Hx Renal Failure: No - ENDOCRINE/METABOLIC Hx Hypothyroidism: Yes - HEMATOLOGICAL/ONCOLOGICAL Hx Cancer: Yes (colon ca) - INTEGUMENTARY Hx Dermatological Problems: No - MUSCULOSKELETAL/RHEUMATOLOGICAL Hx Falls: Yes - GASTROINTESTINAL Hx Colostomy: Yes - PSYCHIATRIC Hx Emotional Abuse: No Hx Physical Abuse: No Hx Substance Use: No - SURGICAL HISTORY Hx Hysterectomy: Yes - ANESTHESIA Hx Anesthesia Reactions: Yes (CONFUSION) Hx Malignant Hyperthermia: No Meds Allergies/Adverse Reactions: Allergies Allergy/AdvReac Type Severity Reaction Status Date / Time No Known Allergies Allergy Verified 09/08/17 14:57 Physical Exam - Constitutional Appears: No Acute Distress - Head Exam Head Exam: ATRAUMATIC, NORMAL INSPECTION - Eye Exam Eye Exam: EOMI Pupil Exam: PERRL - ENT Exam ENT Exam: Mucous Membranes Moist - Respiratory Exam Respiratory Exam: Clear to Auscultation Bilateral. absent: Respiratory Distress - Cardiovascular Exam Cardiovascular Exam: REGULAR RHYTHM, +S1, +S2 - GI/Abdominal Exam GI & Abdominal Exam: Normal Bowel Sounds. absent: Firm, Guarding Additional comments: left colostomy bag present, insertion site is non bleeding. Bag has brown stool , no blood noted. - Extremities Exam Extremities exam: Positive for: normal inspection. Negative for: calf tenderness Additional comments: resting tremor noted B/L on lower and upper extremities, worse with movement. - Neurological Exam Neurological exam: Alert, CN II-XII Intact, Oriented x3 - Skin Skin Exam: Normal Color, Warm Results - Vital Signs Recent Vital Signs: Last Vital Signs Temp 97.8 F 11/14/17 16:42 Pulse 86 11/14/17 16:42 Resp 18 11/14/17 16:42 BP 146/97 H 11/14/17 16:42 Pulse Ox 95 11/14/17 16:42 - Labs Result Diagrams: 11/14/17 17:59 11/14/17 19:02 Assessment & Plan - Assessment and Plan (Free Text) Assessment: This is a 72 year old female with PMH of HLD, HTN, alzheimer's dementia, hypothyroidism, diverticulitis, colon cancer s/p colostomy 5 years ago and essential tremor presenting to the ED for AMS and generalized weakness. Patient will be admitted to tele. Working up for stroke. Plan: AMS -2/2 stroke -consider other etiologies such as UTI -neurology on consult, Dr. Lassiter -patient outside of tpa window -EKG: NSR @ 86 BPM, no ST elevation or depression, no T wave inversion. -NIHS stroke scale 2 in ED, difficult to ascertain with history of dementia -CT Head: Atrophy. Moderate nonspecific white matter changes as above. Question presence of dense right MCA sign. -CTA Head: 2-3 mm focal outpouching of contrast from distal basilar artery toward right posterior cerebral artery could represent proximal P1 segment with distal P1 occlusion or basilar tip aneurysm. Normal flow in right posterior cerebral artery P2 segment via posterior to indicating artery. Mild- moderate distal left internal carotid artery stenosis secondary to calcified plaque. Mild less than 50% distal right internal carotid artery stenosis secondary to calcified plaque. No right middle cerebral artery occlusion to account for questioned hyperdensity on prior CT. Non acute findings as above. -CTA Cervical: Mild less than 40% bilateral internal carotid artery stenoses. Mild calcified plaque in proximal vertebral arteries. No occlusion or hemodynamically significant stenosis. Right parotid gland masses. Differential considerations include lymphadenopathy and primary parotid gland tumors which could be benign or malignant. -aspiration precautions, HOB 30 degrees -speech swallow pending -P.T. pending -bladder scan pending, may need mosqueda if retaining -U/A pending -NPO except meds -ASA and lipitor -echo on 09/08/17 showed EF 52.7%, mild concentric LVH -carotid US on 09/08/17 showed B/L 20-39 percent proximal ICA stenoses, anterograde flow in both vertebral arteries History of essential tremor -positive family history of tremor -not compliant with propanolol -awaiting neurology recommendations History of hypothyroidism -patient non compliant with synthroid -TSH/T4 pending History of HTN -holding BP meds for 24 hours, permissive HTN <220/120 -patient normally takes carvedilol 3.125mg, losartan 50mg History of HLD -lipid panel pending -cont lipitor History of dementia -continue aricept PPX with heparin and pepcid Patient seen and examined with attending, Dr. Teagan Petersen, PGY-1 <Christy Candelaria - Last Filed: 11/15/17 06:15> Results - Vital Signs Recent Vital Signs: Last Vital Signs Temp 98.2 F 11/15/17 00:12 Pulse 95 H 11/15/17 02:00 Resp 20 11/15/17 00:12 BP 185/101 H 11/15/17 00:47 Pulse Ox 100 11/14/17 23:44 - Labs Result Diagrams: 11/14/17 17:59 11/14/17 19:02 Attending/Attestation - Attestation I have personally seen and examined this patient.: Yes I have fully participated in the care of the patient.: Yes I have reviewed all pertinent clinical information: Yes
[2017-11-15] MEDS: Sodium Chloride 0.9% 1,000 ML IV SCH ×6 (00:24→23:00)
[2017-11-15 00:53] LABS: T4 14.3 ug/dL (5.5-11.0)
--- NOTE | 2017-11-15 08:00 | CP.PCM.PN ---
<Reno Ramos - Last Filed: 11/15/17 18:20> Subjective - Date & Time of Evaluation Date of Evaluation: 11/15/17 Time of Evaluation: 07:42 - Subjective Subjective: Reno Ramos DO PGY-1, Internal Medicine Resident. Hospitalist Progress Note Patient seen and examined at bedside in ED. Patient was alert, not oriented, mumbling in unknown words. Patient responding to few questions. History and ROS are limited due to AMS. No acute events per nurse. Objective - Vital Signs/Intake and Output Vital Signs (last 24 hours): Temp Pulse Resp BP Pulse Ox 98.2 F 95 H 20 185/101 H 100 11/15/17 00:12 11/15/17 02:00 11/15/17 00:12 11/15/17 00:47 11/14/17 23:44 Intake and Output: 11/15/17 11/15/17 06:59 18:59 Intake Total 0 Output Total 0 Balance 0 - Medications Medications: Current Medications Acetaminophen (Tylenol 325mg Tab) 650 mg PO Q6H PRN PRN Reason: Fever >100.4 F Aspirin (Aspirin Chewable) 81 mg PO DAILY SPENCER Atorvastatin Calcium (Lipitor) 80 mg PO DIN SPENCER Donepezil HCl (Aricept) 10 mg PO HS SPENCER Famotidine (Pepcid) 20 mg IVP DAILY SPENCER Heparin Sodium (Porcine) (Heparin) 5,000 units SC Q12 SPENCER PRN Reason: Protocol Sodium Chloride (Sodium Chloride 0.9%) 1,000 mls @ 100 mls/hr IV .Q10H [facility] Last Admin: 11/15/17 03:24 Dose: Not Given Oxycodone/Acetaminophen (Percocet 5/325 Mg Tab) 1 tab PO Q6H PRN PRN Reason: Pain, severe (8-10) Stop: 11/17/17 21:31 - Labs Labs: PT 13.2 SECONDS (9.4-12.5) H 11/14/17 17:58 INR 1.15 11/14/17 17:58 APTT 30.0 Seconds (25.1-36.5) 11/14/17 17:58 - Constitutional Appears: Confused - Head Exam Head Exam: ATRAUMATIC, NORMOCEPHALIC - Eye Exam Eye Exam: EOMI, Normal appearance Pupil Exam: PERRL - ENT Exam ENT Exam: Mucous Membranes Moist, Normal Exam - Neck Exam Neck Exam: Full ROM, Normal Inspection. absent: Lymphadenopathy - Respiratory Exam Respiratory Exam: Clear to Ausculation Bilateral, NORMAL BREATHING PATTERN - Cardiovascular Exam Cardiovascular Exam: REGULAR RHYTHM, +S1, +S2, Murmur - GI/Abdominal Exam GI & Abdominal Exam: Soft, Normal Bowel Sounds. absent: Tenderness Additional comments: COLOSTOMY BAG, CLEAN, NO BLOOD - Extremities Exam Extremities Exam: Full ROM, Normal Capillary Refill, Normal Inspection. absent : Joint Swelling, Pedal Edema Additional comments: resting tremor noted B/L on lower and upper extremities, worse with movement. - Back Exam Back Exam: NORMAL INSPECTION - Neurological Exam Neurological Exam: Altered, Awake - Skin Skin Exam: Dry, Intact, Normal Color, Warm Assessment and Plan - Assessment and Plan (Free Text) Assessment: 72 year old female with PMH of HLD, HTN, alzheimer's dementia, hypothyroidism, diverticulitis, colon cancer s/p colostomy, essential tremor presenting to the ED for AMS and generalized weakness. Patient admitted to tele for stroke work up Plan: AMS -Likely due to stroke/infectious etiology -patient did not receive tpa. out of window -CT Head: Atrophy. Moderate nonspecific white matter changes as above. Question presence of dense right MCA sign. -CTA Head: 2-3 mm focal outpouching of contrast from distal basilar artery toward right posterior cerebral artery. Mild-moderate distal left internal carotid. -CTA Cervical: Mild less than 40% bilateral internal carotid artery stenoses. -repeat speech swallow -PT ordered -NPO except meds -ASA and lipitor -EKG: NSR @ 86 BPM, no ST changes -echo(09/14) EF 52.7%, mild concentric LVH -carotid US(09/14) showed B/L 20-39 percent proximal ICA stenosis -NIHS stroke scale 2 in ED -neurology consulted Dr. Guerrero History of essential tremor -positive family history of tremor -not compliant with propanolol History of hypothyroidism -patient non compliant with synthroid -T3/T4 both elevated History of HTN -holding BP meds for 24 hours, permissive HTN <220/120 -continue home med carvedilol, losartan -started Aldactone 50 mg daily -A1c 5.7 History of HLD -lipid panel: CHOL 123, LDL 59, HDL 35 -continue home med lipitor History of dementia -continue home med aricept -aspiration precautions, HOB 30 degrees -PPX with heparin and pepcid Patient seen and examined with attending, Dr. Petty <Lori Petty - Last Filed: 11/17/17 16:49> Objective - Vital Signs/Intake and Output Vital Signs (last 24 hours): Temp Pulse Resp BP Pulse Ox 98.9 F 53 L 18 153/79 H 97 11/17/17 12:00 11/17/17 12:00 11/17/17 12:00 11/17/17 12:00 11/17/17 05:57 Intake and Output: 11/17/17 11/17/17 06:59 18:59 Intake Total 1240 780 Output Total 1103 Balance 137 780 - Labs Labs: 11/17/17 06:30 11/17/17 06:30 PT 13.2 SECONDS (9.4-12.5) H 11/14/17 17:58 INR 1.15 11/14/17 17:58 APTT 30.0 Seconds (25.1-36.5) 11/14/17 17:58 Attending/Attestation - Attestation I have personally seen and examined this patient.: Yes I have fully participated in the care of the patient.: Yes I have reviewed all pertinent clinical information, including history, physical exam and plan: Yes Notes (Text): 11/17/17 16:48 Medical record note made by the resident after discussion with my direction and input after the patient was personally seen and examined by me. I have reviewed the chart and agree that the record accurately reflects by personal performance of the history, physical exam, data review, and medical decision-making, in the course for the patient. I have also personally directed the plan of care. 72 yrs old female with PMh of Alzheimer's disease, hypothyroidism, hypertension, hyperlipidemia, colon cancer (s/p colostomy at least five years ago) presented with worsening tremor and episode of weakness at home. Patient does not has any new weakness.Tremors are most likely essential, Patient is more awake at this time. We will monitor Neuro check and will get MRI of Brain. We will follow up with Neurology.
[2017-11-15 10:16] LABS: BASO # 0.02 K/mm3 (0.0-2.0); BASO % 0.2 % (0.0-3.0); EOS # 0.1 (0.0-0.7); EOS % 0.5 % (1.5-5.0); GRAN # 9.11 (1.4-6.5); GRAN % 84.4 % (50.0-68.0); HEMOGLOBIN 12.8 g/dL (12.0-16.0); LYMPH # 1.1 (1.2-3.4); LYMPH % 9.9 % (22.0-35.0); MEAN CELL VOLUME 89.1 fl (80.0-105.0); MEAN CORPUSCULAR HEMOGLOBIN 30.4 pg (25.0-35.0); MEAN CORPUSCULAR HGB CONC 34.1 g/dl (31.0-37.0); MEAN PLATELET VOLUME 11.6 fl (7.0-11.0); MONO # 0.5 (0.1-0.6); RBC 4.21 10^6/uL (3.5-6.1); RED CELL DISTRIBUTION WIDTH 13.8 % (11.5-14.5); WHITE BLOOD COUNT 10.8 10^3/ul (4.5-11.0)
[2017-11-15 10:45] LABS: ALB/GLOB RATIO 1.2 (1.1-1.8); ALT/SGPT 26 U/L (7-56); AST/SGOT 20 U/L (14-36); BLOOD UREA NITROGEN 10 mg/dL (7-21); CALCIUM 10.1 mg/dL (8.4-10.5); GFR NON-AFRICAN AMERICAN > 60
--- NOTE | 2017-11-15 13:13 | CON ---
DATE: 11/15/2017 HISTORY OF PRESENT ILLNESS: This is a 72-year-old with a past medical history of hypertension, hypothyroidism, dementia and the patient is chronically bed bound and came with confusion and very poor historian. Family at bedside. The patient is confused and also has some tremors and shakes of the right hand. ALLERGY: NO KNOWN DRUG ALLERGY. HOME MEDICATIONS: Lipitor, vitamin B12, Aricept, meclizine, Coreg and Ultram. PHYSICAL EXAMINATION VITAL SIGNS: Blood pressure 146/97. HEENT: Normocephalic, atraumatic. NECK: Supple. NEUROLOGIC: Awake, orientated to self, confused, not to the time and place. Pupils . No facial asymmetry. Tongue midline. Motor examination: Spontaneous movement of the extremities noted. Deep tendon reflexes 1+. Both plantars are downgoing. Sensory appears intact. LABORATORY DATA: CAT scan of the head shows dense right MCA signs and the workup in progress. IMPRESSION: Encephalopathy superimposed on dementia. CT finding noted. The patient was discussed with Dr. Lassiter, enterprise resource planning consultant for stroke and workup in progress. Jamal Guerrero MD
[2017-11-15 13:39] LABS: FOLATE 6.6 ng/mL
--- NOTE | 2017-11-15 13:52 | CT ---
Date of service: 11/14/2017 PROCEDURE: CT Angiography of the Brain. HISTORY: questionable dense on the rt. MCA on CT head COMPARISON: None available. TECHNIQUE: CT angiography of the intracranial arteries was performed. Coronal and sagittal maximum intensity projection reformated images were generated. This CT exam was performed using one or more of the following dose reduction techniques: Automated exposure control, adjustment of the mA and/or kV according to patient size, and/or use of iterative reconstruction technique. FINDINGS: INTERNAL CEREBRAL ARTERIES: Unremarkable. The skull base, petrous, cavernous and supraclinoid segments are bilaterally widely patent. ANTERIOR CEREBRAL ARTERIES: Unremarkable. A1 and A2 segments are widely patent. Smaller distal branches unremarkable, as visualized. MIDDLE CEREBRAL ARTERIES: Unremarkable. M1 and M2 segments are widely patent. Perisylvian branches grossly symmetric. There is no evidence of occlusion to account for the questionable hyperdensity on prior CT. POSTERIOR CIRCULATION: Basilar Artery: Unremarkable. Distal Vertebral Arteries: Unremarkable. Posterior Cerebral Arteries: Unremarkable. Posterior Inferior Cerebellar Arteries: Unremarkable. ANEURYSM/ VASCULAR MALFORMATIONS: None. OTHER FINDINGS: The report concurs with the preliminary [facility] report IMPRESSION: Unremarkable CT Angiography of the Brain. Date of service: 11/14/2017 PROCEDURE: CT Angiography of the neck with contrast HISTORY: questionable dense on the rt. MCA on CT head COMPARISON: None. TECHNIQUE: Contiguous axial images of the neck were obtained from the level of the skull-base to the superior mediastinum in the arteriographic phase of enhancement. Coronal and sagittal reformats or also generated. IV contrast dose: 100 cc of Omni 350 Radiation Dose - DLP: 384 mGy-cm This CT exam was performed using one or more of the following dose reduction techniques: Automated exposure control, adjustment of the mA and/or kV according to patient size, and/or use of iterative reconstruction technique. FINDINGS: RIGHT CAROTID ARTERIES: Minimally calcified plaques are seen in the proximal internal carotid with no significant stenosis LEFT CAROTID ARTERIES: Minimally calcified plaques are seen in the proximal internal carotid with no significant stenosis VERTEBRAL ARTERIES: Right Vertebral Artery: Normal. Left Vertebral Artery: Normal. OTHER FINDINGS: None. IMPRESSION: Minimally calcified plaques with no significant stenosis in the proximal internal carotids
--- NOTE | 2017-11-16 06:12 | CP.PCM.PN ---
Addendum entered and electronically signed by Reno Ramos DO 11/17/17 07:22 : Case reviewed and plan discussed with attending Dr Petty Original Note: <Reno Ramos - Last Filed: 11/16/17 20:52> Subjective - Date & Time of Evaluation Date of Evaluation: 11/16/17 Time of Evaluation: 05:40 - Subjective Subjective: Reno Ramos DO PGY-1, Internal Medicine Resident. Hospitalist Progress Note Patient seen and examined at bedside in ED. Patient is resting in bed. History and ROS are limited due to AMS. No acute events overnight per nurse. Objective - Vital Signs/Intake and Output Vital Signs (last 24 hours): Temp Pulse Resp BP Pulse Ox 97.6 F 58 L 20 126/64 98 11/16/17 00:01 11/16/17 02:00 11/16/17 00:01 11/16/17 00:01 11/16/17 00:01 Intake and Output: 11/15/17 11/16/17 18:59 06:59 Intake Total 1100 120 Output Total 1 Balance 1100 119 - Medications Medications: Current Medications Acetaminophen (Tylenol 325mg Tab) 650 mg PO Q6H PRN PRN Reason: Fever >100.4 F Aspirin (Aspirin Chewable) 81 mg PO DAILY [facility] Last Admin: 11/15/17 09:45 Dose: 81 mg Atorvastatin Calcium (Lipitor) 80 mg PO DIN [facility] Last Admin: 11/15/17 17:21 Dose: 80 mg Carvedilol (Coreg) 3.125 mg PO BID [facility] Last Admin: 11/15/17 17:21 Dose: 3.125 mg Donepezil HCl (Aricept) 10 mg PO HS [facility] Last Admin: 11/15/17 22:12 Dose: 10 mg Famotidine (Pepcid) 20 mg IVP DAILY [facility] Last Admin: 11/15/17 09:46 Dose: 20 mg Heparin Sodium (Porcine) (Heparin) 5,000 units SC Q12 [facility] PRN Reason: Protocol Last Admin: 11/15/17 22:13 Dose: 5,000 units Sodium Chloride (Sodium Chloride 0.9%) 1,000 mls @ 100 mls/hr IV .Q10H [facility] Last Admin: 11/15/17 20:11 Dose: 100 mls/hr Oxycodone/Acetaminophen (Percocet 5/325 Mg Tab) 1 tab PO Q6H PRN PRN Reason: Pain, severe (8-10) Stop: 11/17/17 21:31 Spironolactone (Aldactone) 50 mg PO DAILY [facility] Last Admin: 11/15/17 20:10 Dose: 50 mg - Labs Labs: 11/15/17 10:00 11/15/17 10:00 PT 13.2 SECONDS (9.4-12.5) H 11/14/17 17:58 INR 1.15 11/14/17 17:58 APTT 30.0 Seconds (25.1-36.5) 11/14/17 17:58 - Additional Findings Additional findings: - Constitutional Appears: Confused - Head Exam Head Exam: ATRAUMATIC, NORMOCEPHALIC - Eye Exam Eye Exam: EOMI, Normal appearance Pupil Exam: PERRL - ENT Exam ENT Exam: Mucous Membranes Moist, Normal Exam - Neck Exam Neck Exam: Full ROM, Normal Inspection. absent: Lymphadenopathy - Respiratory Exam Respiratory Exam: Clear to Ausculation Bilateral, NORMAL BREATHING PATTERN - Cardiovascular Exam Cardiovascular Exam: REGULAR RHYTHM, +S1, +S2, Murmur - GI/Abdominal Exam GI & Abdominal Exam: Soft, Normal Bowel Sounds. absent: Tenderness Additional comments: COLOSTOMY BAG, CLEAN, NO BLOOD - Extremities Exam Extremities Exam: Full ROM, Normal Capillary Refill, Normal Inspection. absent : Joint Swelling, Pedal Edema Additional comments: resting tremor noted B/L on lower and upper extremities, worse with movement. - Back Exam Back Exam: NORMAL INSPECTION - Neurological Exam Neurological Exam: Altered, Awake - Skin Skin Exam: Dry, Intact, Normal Color, Warm Assessment and Plan - Assessment and Plan (Free Text) Assessment: 72 year old female with PMH of HLD, HTN, alzheimer's dementia, hypothyroidism, diverticulitis, colon cancer s/p colostomy, essential tremor presenting to the ED for AMS and generalized weakness. Patient admitted to tele for stroke work up Plan: AMS -Likely due to stroke/infectious etiology -patient did not receive tpa. out of window -CT Head: Atrophy. Moderate nonspecific white matter changes as above. Question presence of dense right MCA sign. -CTA Head: 2-3 mm focal outpouching of contrast from distal basilar artery toward right posterior cerebral artery. Mild-moderate distal left internal carotid. -CTA Cervical: Mild less than 40% bilateral internal carotid artery stenoses. -repeat speech swallow -PT recommended home discharge with services -NPO except meds -ASA and lipitor -EKG: NSR @ 86 BPM, no ST changes -echo(09/14) EF 52.7%, mild concentric LVH -carotid US(09/14) showed B/L 20-39 percent proximal ICA stenosis -NIHS stroke scale 2 in ED -MRI brain: no acute abnormalities -neurology consulted Dr. Guerrero: encephalopathy superimposed on dementia. continue dementia meds. propranolol for tremors History of essential tremor -positive family history of tremor -not compliant with propanolol History of hypothyroidism -patient non compliant with synthroid -T3/T4 both elevated History of HTN -holding BP meds for 24 hours, permissive HTN <220/120 -continue home med carvedilol, losartan -started Aldactone 50 mg daily -A1c 5.7 History of HLD -lipid panel: CHOL 123, LDL 59, HDL 35 -continue home med lipitor History of dementia -continue home med aricept -aspiration precautions, HOB 30 degrees -PPX with heparin and pepcid Case to be discussed with attending, Dr. Petty drafted not finaalized <Lori Petty - Last Filed: 11/17/17 16:54> Objective - Vital Signs/Intake and Output Vital Signs (last 24 hours): Temp Pulse Resp BP Pulse Ox 98.9 F 53 L 18 153/79 H 97 11/17/17 12:00 11/17/17 12:00 11/17/17 12:00 11/17/17 12:00 11/17/17 05:57 Intake and Output: 11/17/17 11/17/17 06:59 18:59 Intake Total 1240 780 Output Total 1103 Balance 137 780 - Labs Labs: 11/17/17 06:30 11/17/17 06:30 PT 13.2 SECONDS (9.4-12.5) H 11/14/17 17:58 INR 1.15 11/14/17 17:58 APTT 30.0 Seconds (25.1-36.5) 11/14/17 17:58 Attending/Attestation - Attestation I have personally seen and examined this patient.: Yes I have fully participated in the care of the patient.: Yes I have reviewed all pertinent clinical information, including history, physical exam and plan: Yes Notes (Text): 11/17/17 16:50 Medical record note made by the resident after discussion with my direction and input after the patient was personally seen and examined by me. I have reviewed the chart and agree that the record accurately reflects by personal performance of the history, physical exam, data review, and medical decision-making, in the course for the patient. I have also personally directed the plan of care. 72 yrs old female with PMh of Alzheimer's disease, hypothyroidism, hypertension, hyperlipidemia, colon cancer (s/p colostomy at least five years ago) presented with worsening tremor and episode of weakness at home. Patient does not has any new weakness. MRI of Brain is negative for any acute finding. Neurology evaluation is appreciated. Patient was evaluated by physical therapy and home services was recommended.She is not a candidate for rehabilitation as Physical therapy.. Patient is refusing intermediate placement in [place]. Patient will be discharged home with home services.She will follow up with PCP . Management plan was discussed in detail with patient son. Education was provided.
[2017-11-16 08:01] LABS: BASO # 0.02 K/mm3 (0.0-2.0); BASO % 0.2 % (0.0-3.0); EOS # 0.2 (0.0-0.7); EOS % 2.4 % (1.5-5.0); GRAN # 6.17 (1.4-6.5); GRAN % 75.2 % (50.0-68.0); HEMOGLOBIN 11.8 g/dL (12.0-16.0); LYMPH # 1.2 (1.2-3.4); LYMPH % 14.4 % (22.0-35.0); MEAN CELL VOLUME 90.9 fl (80.0-105.0); MEAN CORPUSCULAR HEMOGLOBIN 29.9 pg (25.0-35.0); MEAN PLATELET VOLUME 11.5 fl (7.0-11.0); MONO # 0.6 (0.1-0.6); MONO % 7.8 % (1.0-6.0); RBC 3.94 10^6/uL (3.5-6.1); RED CELL DISTRIBUTION WIDTH 14.1 % (11.5-14.5); WHITE BLOOD COUNT 8.2 10^3/ul (4.5-11.0)
[2017-11-16 09:18] LABS: ALB/GLOB RATIO 1.1 (1.1-1.8); ALBUMIN 3.3 g/dL (3.0-4.8); ALT/SGPT 18 U/L (7-56); AST/SGOT 18 U/L (14-36); BLOOD UREA NITROGEN 8 mg/dL (7-21); CALCIUM 9.1 mg/dL (8.4-10.5); GFR NON-AFRICAN AMERICAN > 60
[2017-11-16] MEDS: Sodium Chloride 0.9% 1,000 ML IV SCH (09:18)
--- NOTE | 2017-11-16 11:13 | MRI ---
Date of service: 11/16/2017 PROCEDURE: MRI BRAIN WITHOUT CONTRAST HISTORY: ams COMPARISON: None available. TECHNIQUE: Multiplanar, multisequence MR images of the brain were obtained without intravenous contrast enhancement. FINDINGS: HEMORRHAGE: None DWI: No evidence of an acute or early subacute infarction. BRAIN PARENCHYMA: No mass effect or edema. Chronic microvascular changes are seen in the periventricular white matter. There are no acute findings VENTRICLES: Unremarkable. No hydrocephalus. CRANIUM: Unremarkable. ORBITS: Grossly unremarkable. PARANASAL SINUSES/MASTOIDS: Clear VASCULAR SYSTEM: Skull base flow voids intact. OTHER FINDINGS: None. IMPRESSION: No acute intracranial findings.
--- NOTE | 2017-11-16 13:20 | CP.PCM.PCO ---
Physician Communication Note - Physician Communication Note Physician Communication Note: mri brain no acute abnormalities. c/w dementia meds and porpralol for tremr
[2017-11-17 00:15] VITALS: O2SAT 97
[2017-11-17 05:57] VITALS: RESP 18
[2017-11-17 07:23] LABS: BASO # 0.03 K/mm3 (0.0-2.0); BASO % 0.3 % (0.0-3.0); EOS # 0.3 (0.0-0.7); EOS % 3.3 % (1.5-5.0); GRAN # 7.25 (1.4-6.5); GRAN % 75.8 % (50.0-68.0); HEMOGLOBIN 13.3 g/dL (12.0-16.0); LYMPH # 1.2 (1.2-3.4); LYMPH % 12.7 % (22.0-35.0); MEAN CELL VOLUME 89.4 fl (80.0-105.0); MEAN CORPUSCULAR HEMOGLOBIN 30.7 pg (25.0-35.0); MEAN CORPUSCULAR HGB CONC 34.4 g/dl (31.0-37.0); MONO # 0.8 (0.1-0.6); MONO % 7.9 % (1.0-6.0); RBC 4.33 10^6/uL (3.5-6.1); RED CELL DISTRIBUTION WIDTH 13.9 % (11.5-14.5); WHITE BLOOD COUNT 9.6 10^3/ul (4.5-11.0)
--- NOTE | 2017-11-17 07:26 | CP.PCM.DIS ---
<Reno Ramos - Last Filed: 11/17/17 12:37> Provider - Provider Date of Admission: 11/14/17 20:38 Attending physician: Lori Petty MD Primary care physician: Aimee Zhou MD Consults: neuro Time Spent in preparation of Discharge (in minutes): 45 Hospital Course - Lab Results Lab Results: Most Recent Lab Values WBC 8.2 10^3/ul (4.5-11.0) D 11/16/17 07:30 RBC 3.94 10^6/uL (3.5-6.1) 11/16/17 07:30 Hgb 11.8 g/dL (12.0-16.0) L 11/16/17 07:30 Hct 35.8 % (36.0-48.0) L 11/16/17 07:30 MCV 90.9 fl (80.0-105.0) 11/16/17 07:30 MCH 29.9 pg (25.0-35.0) 11/16/17 07:30 MCHC 33.0 g/dl (31.0-37.0) 11/16/17 07:30 RDW 14.1 % (11.5-14.5) 11/16/17 07:30 Plt Count 245 10^3/uL (120.0-450.0) 11/16/17 07:30 MPV 11.5 fl (7.0-11.0) H 11/16/17 07:30 Gran % 75.2 % (50.0-68.0) H 11/16/17 07:30 Lymph % (Auto) 14.4 % (22.0-35.0) L 11/16/17 07:30 [place] % (Auto) 7.8 % (1.0-6.0) H 11/16/17 07:30 Eos % (Auto) 2.4 % (1.5-5.0) 11/16/17 07:30 Baso % (Auto) 0.2 % (0.0-3.0) 11/16/17 07:30 Gran # 6.17 (1.4-6.5) 11/16/17 07:30 Lymph # (Auto) 1.2 (1.2-3.4) 11/16/17 07:30 [place] # (Auto) 0.6 (0.1-0.6) 11/16/17 07:30 Eos # (Auto) 0.2 (0.0-0.7) 11/16/17 07:30 Baso # (Auto) 0.02 K/mm3 (0.0-2.0) 11/16/17 07:30 PT 13.2 SECONDS (9.4-12.5) H 11/14/17 17:58 INR 1.15 11/14/17 17:58 APTT 30.0 Seconds (25.1-36.5) 11/14/17 17:58 pO2 207 mm/Hg (30-55) H 11/14/17 17:58 VBG pH 7.45 (7.32-7.43) H 11/14/17 17:58 VBG pCO2 39.0 (40-60) L 11/14/17 17:58 VBG HCO3 27.1 mmol/l (21-28) 11/14/17 17:58 VBG Total CO2 28.3 mmol.L (22-28) H 11/14/17 17:58 VBG O2 Sat (Calc) 100.3 % (40-65) H 11/14/17 17:58 VBG Base Excess 3.0 mmol/L (0.0-2.0) H 11/14/17 17:58 VBG Potassium 6.3 mmol/L (3.6-5.2) H* 11/14/17 17:58 Sodium 135.0 mmol/L (132-148) 11/14/17 17:58 Chloride 105.0 mmol/L (98-107) 11/14/17 17:58 Glucose 125 mg/dl (65-105) H 11/14/17 17:58 Lactate 1.1 mmol/L (0.7-2.1) 11/14/17 17:58 FiO2 21.0 % 11/14/17 17:58 Sodium 143 mmol/L (132-148) 11/16/17 08:30 Potassium 4.5 mmol/L (3.6-5.0) 11/16/17 08:30 Chloride 113 mmol/L (98-107) H 11/16/17 08:30 Carbon Dioxide 25 mmol/L (21-33) 11/16/17 08:30 Anion Gap 10 (10-20) 11/16/17 08:30 BUN 8 mg/dL (7-21) 11/16/17 08:30 Creatinine 0.8 mg/dl (0.7-1.2) 11/16/17 08:30 Est GFR ( Amer) > 60 11/16/17 08:30 Est GFR (Non-Af Amer) > 60 11/16/17 08:30 POC Glucose (mg/dL) 120 mg/dL (65-110) H 11/14/17 16:30 Random Glucose 92 mg/dL (70-110) 11/16/17 08:30 Hemoglobin A1c 5.7 % (4.2-6.5) 11/15/17 07:05 Calcium 9.1 mg/dL (8.4-10.5) 11/16/17 08:30 Phosphorus 2.9 mg/dL (2.5-4.5) 11/16/17 08:30 Magnesium 2.0 mg/dL (1.7-2.2) 11/16/17 08:30 Total Bilirubin 0.6 mg/dL (0.2-1.3) 11/16/17 08:30 AST 18 U/L (14-36) 11/16/17 08:30 ALT 18 U/L (7-56) 11/16/17 08:30 Alkaline Phosphatase 67 U/L (38-126) 11/16/17 08:30 Total Creatine Kinase 42 U/L (35-230) 11/14/17 19:02 Total Protein 6.4 g/dL (5.8-8.3) 11/16/17 08:30 Albumin 3.3 g/dL (3.0-4.8) 11/16/17 08:30 Globulin 3.1 gm/dL 11/16/17 08:30 Albumin/Globulin Ratio 1.1 (1.1-1.8) 11/16/17 08:30 Triglycerides 63 mg/dL (35-160) 11/15/17 07:05 Cholesterol 123 mg/dL (130-200) L 11/15/17 07:05 LDL Cholesterol Direct 59 mg/dL (0-129) 11/15/17 07:05 HDL Cholesterol 35 mg/dL (29-60) 11/15/17 07:05 Vitamin B12 307 pg/mL (239-931) 11/15/17 07:05 Folate 6.6 ng/mL 11/15/17 07:05 Thyroxine (T4) 14.3 ug/dL (5.5-11.0) H 11/14/17 19:02 TSH 3rd Generation 5.19 mIU/mL (0.46-4.68) H 11/14/17 19:02 Venous Blood Potassium 6.3 mmol/L (3.6-5.2) H* 11/14/17 17:58 - Hospital Course Hospital Course: 72 year old female with PMH of HLD, HTN, alzheimer's dementia, hypothyroidism, diverticulitis, colon cancer s/p colostomy, essential tremor presenting to the ED for AMS and generalized weakness. Patient was admitted to [facility] for stroke work up. Multiple imaging studies done. CT Head showed Atrophy and moderate nonspecific white matter changes, dense right MCA sign. CTA Head showed 2-3 mm focal outpouching of contrast from distal basilar artery toward right posterior cerebral artery. Mild-moderate distal left internal carotid. CTA Cervical spine showed mild less than 40% bilateral internal carotid artery stenoses. Carotid US showed B/L 20-39 percent proximal ICA stenosis. MRI brain showed no acute abnormalities. Per neurology consult Dr. Guerrero, encephalopathy superimposed on dementia, continue dementia medication and propranolol for tremors. Patient has hypertension, hyperlipidemia, dementia that was medicaaly managed during hospital stay. PT saw the patient and recommended discharge home with services. Patient was clinically stable for discharge. On discharge: please follow up with your PMD within one week of discharge please follow up with neurologist Dr Guerrero please take your medications as prescribed please take new medication Namenda for dementia You should receive home service PT If your symptoms reoccur , please go to the nearest emergency room Discharge Exam - Head Exam Head Exam: ATRAUMATIC, NORMOCEPHALIC - Additional Findings Additional findings: - Constitutional Appears: Confused - Head Exam Head Exam: ATRAUMATIC, NORMOCEPHALIC - Eye Exam Eye Exam: EOMI, Normal appearance Pupil Exam: PERRL - ENT Exam ENT Exam: Mucous Membranes Moist, Normal Exam - Neck Exam Neck Exam: Full ROM, Normal Inspection. absent: Lymphadenopathy - Respiratory Exam Respiratory Exam: Clear to Ausculation Bilateral, NORMAL BREATHING PATTERN - Cardiovascular Exam Cardiovascular Exam: REGULAR RHYTHM, +S1, +S2, Murmur - GI/Abdominal Exam GI & Abdominal Exam: Soft, Normal Bowel Sounds. absent: Tenderness Additional comments: COLOSTOMY BAG, CLEAN, NO BLOOD - Extremities Exam Extremities Exam: Full ROM, Normal Capillary Refill, Normal Inspection. absent : Joint Swelling, Pedal Edema Additional comments: resting tremor noted B/L on lower and upper extremities, worse with movement. - Back Exam Back Exam: NORMAL INSPECTION - Neurological Exam Neurological Exam: Altered, Awake - Skin Skin Exam: Dry, Intact, Normal Color, Warm Discharge Plan - Discharge Medications Prescriptions: Atorvastatin [Lipitor] 20 mg PO DAILY #30 tab Carvedilol [Coreg] 3.125 mg PO DAILY #30 tab Cyanocobalamin [Vitamin B12 1000 mcg/ml Inj] 1,000 mcg IM Q14D #7 vial Donepezil HCl [Aricept] 10 mg PO QPM #30 tablet Levothyroxine [Synthroid] 112 mcg PO DAILY #30 tab Meclizine [Meclizine*] 25 mg PO TID PRN #90 tab PRN Reason: Dizziness Memantine [Namenda] 5 mg PO DAILY #30 tab Memantine [Namenda] 5 mg PO DAILY #30 tab Solifenacin Succinate [Vesicare] 5 mg PO DAILY #30 tablet - Follow Up Plan Condition: STABLE Disposition: HOME/ ROUTINE Additional Instructions: please follow up with your PMD within one week of discharge please follow up with neurologist Dr Guerrero please take your medications as prescribed please take new medication Namenda for dementia You should receive home service PT If your symptoms reoccur , please go to the nearest emergency room Referrals: Aimee Zhou MD [Primary Care Provider] - <Lori Petty - Last Filed: 11/17/17 16:57> Provider - Provider Date of Admission: 11/14/17 20:38 Attending physician: Lori Petty MD Primary care physician: Aimee Zhou MD Hospital Course - Lab Results Lab Results: Most Recent Lab Values WBC 9.6 10^3/ul (4.5-11.0) 11/17/17 06:30 RBC 4.33 10^6/uL (3.5-6.1) 11/17/17 06:30 Hgb 13.3 g/dL (12.0-16.0) 11/17/17 06:30 Hct 38.7 % (36.0-48.0) 11/17/17 06:30 MCV 89.4 fl (80.0-105.0) 11/17/17 06:30 MCH 30.7 pg (25.0-35.0) 11/17/17 06:30 MCHC 34.4 g/dl (31.0-37.0) 11/17/17 06:30 RDW 13.9 % (11.5-14.5) 11/17/17 06:30 Plt Count 295 10^3/uL (120.0-450.0) 11/17/17 06:30 MPV 12.0 fl (7.0-11.0) H 11/17/17 06:30 Gran % 75.8 % (50.0-68.0) H 11/17/17 06:30 Lymph % (Auto) 12.7 % (22.0-35.0) L 11/17/17 06:30 [place] % (Auto) 7.9 % (1.0-6.0) H 11/17/17 06:30 Eos % (Auto) 3.3 % (1.5-5.0) 11/17/17 06:30 Baso % (Auto) 0.3 % (0.0-3.0) 11/17/17 06:30 Gran # 7.25 (1.4-6.5) H 11/17/17 06:30 Lymph # (Auto) 1.2 (1.2-3.4) 11/17/17 06:30 [place] # (Auto) 0.8 (0.1-0.6) H 11/17/17 06:30 Eos # (Auto) 0.3 (0.0-0.7) 11/17/17 06:30 Baso # (Auto) 0.03 K/mm3 (0.0-2.0) 11/17/17 06:30 PT 13.2 SECONDS (9.4-12.5) H 18 17:58 INR 1.15 11/14/17 17:58 APTT 30.0 Seconds (25.1-36.5) 11/14/17 17:58 pO2 207 mm/Hg (30-55) H 11/14/17 17:58 VBG pH 7.45 (7.32-7.43) H 11/14/17 17:58 VBG pCO2 39.0 (40-60) L 11/14/17 17:58 VBG HCO3 27.1 mmol/l (21-28) 11/14/17 17:58 VBG Total CO2 28.3 mmol.L (22-28) H 11/14/17 17:58 VBG O2 Sat (Calc) 100.3 % (40-65) H 11/14/17 17:58 VBG Base Excess 3.0 mmol/L (0.0-2.0) H 11/14/17 17:58 VBG Potassium 6.3 mmol/L (3.6-5.2) H* 11/14/17 17:58 Sodium 135.0 mmol/L (132-148) 11/14/17 17:58 Chloride 105.0 mmol/L (98-107) 11/14/17 17:58 Glucose 125 mg/dl (65-105) H 11/14/17 17:58 Lactate 1.1 mmol/L (0.7-2.1) 11/14/17 17:58 FiO2 21.0 % 11/14/17 17:58 Sodium 142 mmol/L (132-148) 11/17/17 06:30 Potassium 3.7 mmol/L (3.6-5.0) 11/17/17 06:30 Chloride 107 mmol/L (98-107) 11/17/17 06:30 Carbon Dioxide 27 mmol/L (21-33) 11/17/17 06:30 Anion Gap 11 (10-20) 11/17/17 06:30 BUN 6 mg/dL (7-21) L 11/17/17 06:30 Creatinine 0.7 mg/dl (0.7-1.2) 11/17/17 06:30 Est GFR ( Amer) > 60 11/17/17 06:30 Est GFR (Non-Af Amer) > 60 11/17/17 06:30 POC Glucose (mg/dL) 120 mg/dL (65-110) H 11/14/17 16:30 Random Glucose 103 mg/dL (70-110) 11/17/17 06:30 Hemoglobin A1c 5.7 % (4.2-6.5) 11/15/17 07:05 Calcium 9.9 mg/dL (8.4-10.5) 11/17/17 06:30 Phosphorus 2.5 mg/dL (2.5-4.5) 11/17/17 06:30 Magnesium 2.1 mg/dL (1.7-2.2) 11/17/17 06:30 Total Bilirubin 0.8 mg/dL (0.2-1.3) 11/17/17 06:30 AST 31 U/L (14-36) 11/17/17 06:30 ALT 21 U/L (7-56) 11/17/17 06:30 Alkaline Phosphatase 89 U/L (38-126) 11/17/17 06:30 Total Creatine Kinase 42 U/L (35-230) 11/14/17 19:02 Total Protein 7.6 g/dL (5.8-8.3) 11/17/17 06:30 Albumin 4.0 g/dL (3.0-4.8) 11/17/17 06:30 Globulin 3.6 gm/dL 11/17/17 06:30 Albumin/Globulin Ratio 1.1 (1.1-1.8) 11/17/17 06:30 Triglycerides 63 mg/dL (35-160) 11/15/17 07:05 Cholesterol 123 mg/dL (130-200) L 11/15/17 07:05 LDL Cholesterol Direct 59 mg/dL (0-129) 11/15/17 07:05 HDL Cholesterol 35 mg/dL (29-60) 11/15/17 07:05 Vitamin B12 307 pg/mL (239-931) 11/15/17 07:05 Folate 6.6 ng/mL 11/15/17 07:05 Thyroxine (T4) 14.3 ug/dL (5.5-11.0) H 11/14/17 19:02 TSH 3rd Generation 5.19 mIU/mL (0.46-4.68) H 11/14/17 19:02 Venous Blood Potassium 6.3 mmol/L (3.6-5.2) H* 11/14/17 17:58 Attending/Attestation - Attestation I have personally seen and examined this patient.: Yes I have fully participated in the care of the patient.: Yes I have reviewed all pertinent clinical information, including history, physical exam and plan: Yes Notes (Text): 11/17/17 16:56 Medical record note made by the resident after discussion with my direction and input after the patient was personally seen and examined by me. I have reviewed the chart and agree that the record accurately reflects by personal performance of the history, physical exam, data review, and medical decision-making, in the course for the patient. I have also personally directed the plan of care. 72 yrs old female with PMh of Alzheimer's disease, hypothyroidism, hypertension, hyperlipidemia, colon cancer (s/p colostomy at least five years ago) presented with worsening tremor and episode of weakness at home. Patient does not has any new weakness. MRI of Brain is negative for any acute finding. Patient was evaluated by physical therapy and home services was recommended.She is not a candidate for rehabilitation as Physical therapy.. Patient is refusing manager intermediate placement in [place]. Patient will be discharged home with home services.She will follow up with PCP and Neurology . Management plan was discussed in detail with patient son. Education was provided.
[2017-11-17 07:36] LABS: ALB/GLOB RATIO 1.1 (1.1-1.8); ALT/SGPT 21 U/L (7-56); AST/SGOT 31 U/L (14-36); BLOOD UREA NITROGEN 6 mg/dL (7-21); CALCIUM 9.9 mg/dL (8.4-10.5); GFR NON-AFRICAN AMERICAN > 60
[2017-11-17 12:29] VITALS: BP 153/79; PULSE 53; TEMP 98.9
== END 2017-11-17 16:29 | disposition home or self-care (01) | DRG 56 ==
LOC: ED 16:20 → ERH 20:38 → 2RSO 23:58
PROVIDERS: ADMIT Internal Medicine; ATTEND Internal Medicine
DX: G30.9 Alzheimer's disease, unspecified (principal); G93.49 Other encephalopathy; G93.40 Encephalopathy, unspecified; F02.80 Dementia in other diseases classified elsewhere, unspecified severity, without behavioral disturbance, psychotic disturbance, mood disturbance, and anxiety; G25.0 Essential tremor; I65.23 Occlusion and stenosis of bilateral carotid arteries; E03.9 Hypothyroidism, unspecified; E11.9 Type 2 diabetes mellitus without complications; E78.5 Hyperlipidemia, unspecified; Z93.3 Colostomy status; Z85.038 Personal history of other malignant neoplasm of large intestine; R29.702 NIHSS score 2; I10 Essential (primary) hypertension; R53.1 Weakness; R41.82 Altered mental status, unspecified; R47.81 Slurred speech; Z87.891 Personal history of nicotine dependence; J44.9 Chronic obstructive pulmonary disease, unspecified; Z87.01 Personal history of pneumonia (recurrent); Z90.710 Acquired absence of both cervix and uterus; Z96.642 Presence of left artificial hip joint; Z91.14 Patient's other noncompliance with medication regimen

== ENCOUNTER 2018-01-20 10:05 | Emergency (ER) | payer MEDICARE, OTHER ==
[2018-01-20 10:07] VITALS: BMI 23.4
--- NOTE | 2018-01-20 10:47 | ED PDOC ---
Arrival/HPI - General Chief Complaint: Cardiac Arrest Historian: Family, EMS EM Caveat: Acuity of Condition - Critical Care Critical Care Minutes: 30 minutes - History of Present Illness Narrative History of Present Illness (Text): 01/20/18 10:05 72 year old female with past medical history of Alzheimer's disease, hypothyroidism, hypertension, hyperlipidemia, and colon cancer (s/p colostomy at least five years ago), presenting to the Emergency department via EMS s/p cardiac arrest. Per EMS, patient was found at home with weak pulses and intermittent responses per family. However, the patient became unresponsive en route to the hospital. Upon transport from the ambulance,the patient was discovered to be in asystole and CPR was initiated immediately(10:05 am) while being transported into the ED. A more complete HPI was unable to be obtained due to the patient's to clinical condition. Time/Duration: Prior to Arrival Symptom Onset: Sudden Activities at Onset: Light Context: Home Past Medical History - Provider Review Nursing Documentation Reviewed: Yes - Travel History Have you recently traveled outside [place] w/in the past 3 mons?: No - Infectious Disease Hx of Infectious Diseases: None - Tetanus Immunization Tetanus Immunization: Unknown - Cardiac Hx Hypertension: Yes - Pulmonary Hx Respiratory Disorders: No Hx Asthma: Yes Hx Chronic Obstructive Pulmonary Disease (COPD): Yes Hx Emphysema: Yes Hx Pneumonia: Yes Hx Respiratory Aspiration: No Hx Respiratory Tract Infection: No Hx Sleep Apnea: No Hx Tuberculosis: No - Neurological Hx Alzheimer's Disease: Yes - HEENT Hx HEENT Disorder: Yes (Use of glasses) - Renal Hx Renal Disorder: No Hx Dialysis: No Hx Kidney Stones: No Hx Neurogenic Bladder: No Hx Pyelonephritis: No Hx Renal Cancer: No Hx Renal Failure: No - Endocrine/Metabolic Hx Hypothyroidism: Yes - Hematological/Oncological Hx Cancer: Yes (colon ca) - Integumentary Hx Dermatological Disorder: No - Musculoskeletal/Rheumatological Hx Falls: Yes - Gastrointestinal Hx Colostomy: Yes - Psychiatric Hx Emotional Abuse: No Hx Physical Abuse: No Hx Substance Use: No - Surgical History Hx Hysterectomy: Yes - Anesthesia Hx Anesthesia Reactions: Yes (CONFUSION) Hx Malignant Hyperthermia: No - Suicidal Assessment Feels Threatened In Home Enviroment: No Family/Social History - Physician Review Nursing Documentation Reviewed: Yes Family/Social History: Unknown Family HX Smoking Status: Current Some Days Smoker Hx Alcohol Use: No Hx Substance Use: No Hx Substance Use Treatment: No Allergies/Home Meds Allergies/Adverse Reactions: Allergies No Known Allergies Allergy (Verified 01/20/18 10:07) Home Medications: Home Meds Medication Instructions Recorded Confirmed Ergocalciferol (Vitamin D2) 50,000 iu PO WED 07/01/15 11/14/17 [Vitamin D2] Losartan Potassium 50 mg PO DAILY 07/01/15 11/14/17 Tramadol HCl [Ultram] 50 mg PO BID 11/14/17 11/14/17 Review of Systems - Review of Systems Systems not reviewed;Unavailable: Acuity of Condition (Cardiac arrest) Physical Exam - Physical Exam Physical Exam Limitations: Clinical Condition Appearance: Positive for: Cachectic Mental Status: Positive for: Comatose - Systems Exam Head: Present: Atraumatic, Normocephalic Pupils: Present: Other (dilated and fixed) Mouth: Present: Dry, Other (Poor dentation) Cardiovascular: Present: Other (No palpable pulse) Abdomen: Present: Other (Soft. Stoma noted in the left lower quadrant ). No: Distention Upper Extremity: Present: Other (No palpable pulse) Lower Extremity: Present: Other (IO placed to right lower tibia) Skin: Present: Pale Medical Decision Making ED Course and Treatment: 01/20/18 10:05 Impression: 72 year old female presents to the Emergency department s/p cardiac arrest. Differential Diagnosis included but are not limited to: Cardiac arrest Prior Visits: Notes and results from previous visits were reviewed. Progress Notes: 01/20/18 10:12 am Due to lack of peripheral access, IO was utilized. Patient was given the first epinepherine. Compressions continued. No shockable rhythm detected on cardiac cath rn. 01/20/18 10:15am Compressions halted. No pulse detected. Compressions resumed. Epinephrine given. No shockable rhythm detected on cardiac cath rn. Patient's son approached about end of life wishes and code status at the bedside. Prior to intubation, he states patient wished to not have any medical intervention during such event. Son confirms his presence as power of staff attorney & desires medical interventions to cease. 01/20/18 10:18am CPR stopped. Time of called at 10:18 am. - Critical Care Critical Care Minutes: 30 minutes - Scribe Statement The provider has reviewed the documentation as recorded by the Scribe Bill Badillo. All medical record entries made by the Scribe were at my direction and personally dictated by me. I have reviewed the chart and agree that the record accurately reflects my personal performance of the history, physical exam, medical decision making, and the department course for this patient. I have also personally directed, reviewed, and agree with the discharge instructions and disposition. Disposition/Present on Arrival - Present on Arrival Any Indicators Present on Arrival: No History of DVT/PE: No History of Uncontrolled Diabetes: No Urinary Catheter: No History of Decub. Ulcer: No History Surgical Site Infection Following: None - Disposition Have Diagnosis and Disposition been Completed?: Yes Diagnosis: Cardiopulmonary arrest Disposition: WITH WITHOUT AUTOPSY Disposition Time: 10:18 Patient Plan: Other () Condition: Forms: [employer] (French)
== END 2018-01-20 10:18 ==
LOC: ED 10:05
DX: I46.9 Cardiac arrest, cause unspecified (principal); I10 Essential (primary) hypertension; J44.9 Chronic obstructive pulmonary disease, unspecified; E78.5 Hyperlipidemia, unspecified; E03.9 Hypothyroidism, unspecified; G30.9 Alzheimer's disease, unspecified; Z85.038 Personal history of other malignant neoplasm of large intestine; Z93.3 Colostomy status; F17.210 Nicotine dependence, cigarettes, uncomplicated